=== PATIENT | female | born 1980 | race African-American/Black ===

== ENCOUNTER 2017-03-07 00:40 | Emergency (ER) | payer OTHER ==
[~2017-03-07] VITALS: Ht 170.2 cm; Wt 86.0 kg
[2017-03-07 00:44] VITALS: BP 122/72
== END 2017-03-07 01:34 | disposition left against medical advice (07) ==
LOC: EMS 00:41
DX: N93.9 Abnormal uterine and vaginal bleeding, unspecified (principal); R10.30 Lower abdominal pain, unspecified; J45.909 Unspecified asthma, uncomplicated; F17.210 Nicotine dependence, cigarettes, uncomplicated; Z53.21 Procedure and treatment not carried out due to patient leaving prior to being seen by health care provider

== ENCOUNTER 2018-03-27 09:57 | Emergency (ER) | payer OTHER | END 2018-03-27 10:19 | disposition left against medical advice (07) | LOC: EMS 09:58 | DX: M54.9 Dorsalgia, unspecified (principal); J45.909 Unspecified asthma, uncomplicated; G43.909 Migraine, unspecified, not intractable, without status migrainosus; F17.210 Nicotine dependence, cigarettes, uncomplicated; Z53.21 Procedure and treatment not carried out due to patient leaving prior to being seen by health care provider ==

== ENCOUNTER 2018-04-17 22:53 | Inpatient (IN) | payer SELFPAY ==
[~2018-04-17] VITALS: Ht 172.7 cm; Wt 62.4 kg
[2018-04-17] MEDS ORDERED: ALBU8.5H8 IH (23:00)
[2018-04-18] VITALS (17 sets, daily range): BP systolic 120–145; BP diastolic 64–89
[2018-04-18 02:26] LABS: MEAN CORPUSCULAR HEMOGLOBIN 16.6 pg (26.0-34.0); MEAN CORPUSCULAR HGB CONC 29.3 G/dL (31.0-37.0); MEAN CORPUSCULAR VOLUME 57 fL (80-100); PLATELET COUNT (AUTO) 505 K/uL (150-450); RED CELL DISTRIBUTION WIDTH 21.6 % (11.5-14.5)
[2018-04-18 02:35] LABS: ANION GAP 5 mmol/L (8-16); CALCIUM, TOTAL 8.3 mg/dL (8.8-10.5); CARBON DIOXIDE 27 mmol/L (22-29); CHLORIDE 106 mmol/L (98-107); CREATININE 0.76 mg/dL (0.60-1.30); GLOMERULAR FILTR. RATE CALC > 60 mL/min (>60); GLUCOSE,RANDOM 77 mg/dL (70-110); HEMOGLOBIN 6.5 g/dL (12.0-16.0); POTASSIUM 3.7 mmol/L (3.5-5.1); SODIUM SERUM 138 mmol/L (136-145); UREA NITROGEN, BLOOD 13 mg/dL (7-18)
[2018-04-18 02:50] LABS: ALANINE AMINOTRANSFERASE 18 U/L (12-78); ALBUMIN 3.3 g/dL (3.4-5.0); ALKALINE PHOSPHATASE 44 U/L (46-116); ASPARTATE AMINOTRANSFERASE 17 U/L (15-37); BILIRUBIN,TOTAL 0.1 mg/dL (0.1-1.0); TOTAL PROTEIN, SERUM 6.8 g/dL (6.4-8.2)
[2018-04-18 02:59] LABS: BAND NEUTROPHILS % (MANUAL) 0 % (0-5); EOSINOPHILS % (MANUAL) 2 % (1-6); LYMPHOCYTES % (MANUAL) 33 % (22-44); SEGMENTED NEUTROPHILS % 65 % (40-70)
[2018-04-18] MEDS ORDERED: ONDANSETRON HCL 4 MG/2 ML VIAL IVP PRN ×2 (03:00→05:00)
[2018-04-18] MEDS ORDERED: DiphenhydrAMINE HCL 25 MG CAPSULE PO ONE (03:00)
[2018-04-18] MEDS ORDERED: ACETAMINOPHEN 325 MG TABLET PO PRN ×2 (03:00→05:00)
[2018-04-18] MEDS ORDERED: ACETAMINOPHEN 500 MG TABLET PO ONE (03:00)
[2018-04-18] MEDS ORDERED: 0.9% SODIUM CHLORIDE 10 ML SYRINGE IVP PRN (03:00)
[2018-04-18 03:38] LABS: % IRON SATURATION 1.6 % (22-44)
[2018-04-18] MEDS ORDERED: SODIUM CHLORIDE 0.9% 250 ML IV ONE (04:07)
[2018-04-18] MEDS ORDERED: MAGNESIUM HYDROXIDE SUSPENSION 30 ML UDCUP PO PRN (05:00)
[2018-04-18] MEDS ORDERED: ALBUTEROL SULFATE 2.5 MG/0.5 ML NEB SOLUTION NEB PRN (05:00)
[2018-04-18] MEDS ORDERED: IPRATROPIUM BROMIDE 0.5 MG/2.5 ML NEB SOLUTION NEB PRN (05:00)
[2018-04-18] MEDS ORDERED: OxyCODONE HCL/ACETAMINOPHEN 5-325 MG TABLET PO PRN ×2 (05:00→16:45)
[2018-04-18] MEDS ORDERED: ZOLPIDEM TARTRATE 5 MG TABLET PO PRN (05:00)
[2018-04-18] MEDS ORDERED: BISACODYL 10 MG RECTAL RECTAL SUPPOSITORY PR PRN (05:00)
[2018-04-18] MEDS: FERROUS SULFATE 325 MG EC TABLET PO SCH ×3 (08:08→18:05)
[2018-04-18] MEDS ORDERED: SODIUM CHLORIDE 0.9% 500 ML IV ONE (11:09)
[2018-04-18 16:45] LABS: BASOPHILS % (AUTO) 0.8 % (0.0-2.0); EOSINOPHILS % (AUTO) 1.2 % (1.0-6.0); HEMATOCRIT 30.8 % (36-46); HEMOGLOBIN 9.2 g/dL (12.0-16.0); LYMPHOCYTES # (AUTO) 3.7 K/uL (1.0-4.8); LYMPHOCYTES % (AUTO) 45.5 % (22.0-44.0); MEAN CORPUSCULAR HEMOGLOBIN 18.8 pg (26.0-34.0); MEAN CORPUSCULAR VOLUME 63 fL (80-100); MONOCYTES # (AUTO) 0.4 K/uL (0.1-1.0); NEUTROPHILS # (AUTO) 3.9 K/uL (1.8-7.7); NEUTROPHILS % (AUTO) 47.5 % (40.0-70.0); PLATELET COUNT (AUTO) 522 K/uL (150-450); RED BLOOD CELL COUNT(AUTO) 4.91 MIL/uL (4.00-5.20); RED CELL DISTRIBUTION WIDTH 28.1 % (11.5-14.5)
[2018-04-18] MEDS ORDERED: SUMAtriptan SUCCINATE 6 MG/0.5 ML VIAL SQ ONE (16:45)
[2018-04-18 17:43] LABS: PLATELET MORPHOLOGY COMMENT INCREASED
== END 2018-04-18 18:30 | disposition left against medical advice (07) | DRG 812 ==
LOC: EMS 22:53 → 6N 04-18 03:24
PROVIDERS: ADMIT Internal Medicine; ATTEND Internal Medicine
PROC: 30233N1 Transfusion of Nonautologous Red Blood Cells into Peripheral Vein, Percutaneous Approach (ICD-10-PCS; principal; 2018-04-18)
DX: D50.9 Iron deficiency anemia, unspecified (principal); N92.0 Excessive and frequent menstruation with regular cycle; G43.909 Migraine, unspecified, not intractable, without status migrainosus; Z53.21 Procedure and treatment not carried out due to patient leaving prior to being seen by health care provider; J45.909 Unspecified asthma, uncomplicated; G40.909 Epilepsy, unspecified, not intractable, without status epilepticus; F17.210 Nicotine dependence, cigarettes, uncomplicated; Z71.6 Tobacco abuse counseling; Z98.891 History of uterine scar from previous surgery; Z87.442 Personal history of urinary calculi
CPT/HCPCS: 83540; 83550; 86850; 86900; 86901; 86920; 93005; 99285; 99406; J3030; J7040; J7050; P9016

== ENCOUNTER 2021-02-13 07:01 | Emergency (ER) | payer MEDICAID ==
[~2021-02-13] VITALS: Ht 172.7 cm; Wt 115.9 kg
[~2021-02-13 07:01] MED LIST: ALBU8.5H8 IH; MIRT-89 PO
[2021-02-13] MEDS ORDERED: DEPOP150I IM (07:12)
[2021-02-13] MEDS ORDERED: FAMOTIDINE 10 MG/ML 2 ML VIAL IVP ONE (08:15)
[2021-02-13] MEDS ORDERED: SODIUM CHLORIDE 0.9% 1,000 ML IV ONE (08:15)
[2021-02-13] MEDS ORDERED: KETOROLAC TROMETHAMINE 30 MG/ML VIAL IVP ONE (08:15)
[2021-02-13] MEDS ORDERED: ONDANSETRON HCL 4 MG/2 ML VIAL IVP ONE (08:15)
[2021-02-13] MEDS ORDERED: METOCLOPRAMIDE HCL 5 MG/ML 2 ML VIAL IVP ONE (08:15)
[2021-02-13] MEDS ORDERED: DiphenhydrAMINE HCL 50 MG/ML VIAL IVP ONE (08:15)
[2021-02-13 08:25] LABS: BASOPHILS % (AUTO) 0.6 % (0.0-2.0); EOSINOPHILS % (AUTO) 1.3 % (1.0-6.0); HEMATOCRIT 38.8 % (36-46); HEMOGLOBIN 12.2 g/dL (12.0-16.0); LYMPHOCYTES # (AUTO) 1.2 K/uL (1.0-4.8); LYMPHOCYTES % (AUTO) 15.5 % (22.0-44.0); MEAN CORPUSCULAR HEMOGLOBIN 24.4 pg (26.0-34.0); MEAN CORPUSCULAR HGB CONC 31.5 G/dL (31.0-37.0); MEAN CORPUSCULAR VOLUME 77 fL (80-100); MONOCYTES # (AUTO) 0.6 K/uL (0.1-1.0); MONOCYTES % (AUTO) 7.7 % (2.0-9.0); NEUTROPHILS # (AUTO) 5.7 K/uL (1.8-7.7); NEUTROPHILS % (AUTO) 74.9 % (40.0-70.0); PLATELET COUNT (AUTO) 401 K/uL (150-450); RED CELL DISTRIBUTION WIDTH 15.2 % (11.5-14.5)
[2021-02-13 08:37] LABS: ANION GAP 7 mmol/L (8-16); CALCIUM, TOTAL 8.7 mg/dL (8.8-10.5); CARBON DIOXIDE 26 mmol/L (22-29); CHLORIDE 105 mmol/L (98-107); CREATININE 0.91 mg/dL (0.60-1.30); GLOMERULAR FILTR. RATE CALC > 60 mL/min (>60); GLUCOSE,RANDOM 110 mg/dL (70-110); POTASSIUM 3.8 mmol/L (3.5-5.1); SODIUM SERUM 138 mmol/L (136-145); UREA NITROGEN, BLOOD 12 mg/dL (7-18)
[2021-02-13] MEDS ORDERED: IOHEXOL 350 MG/ML 100 ML VIAL ONE (08:47)
[2021-02-13] MEDS ORDERED: SODIUM CHLORIDE 0.9% 100 ML ONE (08:47)
[2021-02-13 08:51] LABS: ALANINE AMINOTRANSFERASE 21 U/L (12-78); ALBUMIN 3.6 g/dL (3.4-5.0); ALKALINE PHOSPHATASE 79 U/L (46-116); ASPARTATE AMINOTRANSFERASE 12 U/L (15-37); BILIRUBIN,TOTAL 0.2 mg/dL (0.1-1.0); HCG,QUANTITATIVE < 1 mIU/mL (0-6); LIPASE 44 U/L (73-393); TOTAL PROTEIN, SERUM 7.3 g/dL (6.4-8.2)
[2021-02-13 11:22] VITALS: BP 130/70
== END 2021-02-13 11:26 | disposition home or self-care (01) ==
LOC: EMS 07:02
DX: K52.9 Noninfective gastroenteritis and colitis, unspecified (principal); J45.909 Unspecified asthma, uncomplicated; F31.9 Bipolar disorder, unspecified; F20.9 Schizophrenia, unspecified; F17.210 Nicotine dependence, cigarettes, uncomplicated
CPT/HCPCS: 36415; 74177; 80053; 83690; 84702; 85025; 96361; 96374; 96375; 99285; A9575; J1200; J1885; J2405; J2765; J3490; J7050

== ENCOUNTER 2021-04-14 18:28 | Emergency (ER) | payer MEDICAID ==
[~2021-04-14] VITALS: Ht 172.7 cm; Wt 118.2 kg
[~2021-04-14 18:28] MED LIST changes: +DEPOP150I IM; -MIRT-89 PO
[2021-04-14 19:15] LABS: BASOPHILS % (AUTO) 0.7 % (0.0-2.0); EOSINOPHILS % (AUTO) 0.9 % (1.0-6.0); HEMATOCRIT 38.6 % (36-46); HEMOGLOBIN 12.5 g/dL (12.0-16.0); LYMPHOCYTES # (AUTO) 1.4 K/uL (1.0-4.8); LYMPHOCYTES % (AUTO) 13.2 % (22.0-44.0); MEAN CORPUSCULAR HEMOGLOBIN 25.5 pg (26.0-34.0); MEAN CORPUSCULAR HGB CONC 32.3 G/dL (31.0-37.0); MEAN CORPUSCULAR VOLUME 79 fL (80-100); MONOCYTES # (AUTO) 0.6 K/uL (0.1-1.0); MONOCYTES % (AUTO) 5.8 % (2.0-9.0); NEUTROPHILS # (AUTO) 8.6 K/uL (1.8-7.7); NEUTROPHILS % (AUTO) 79.4 % (40.0-70.0); PLATELET COUNT (AUTO) 427 K/uL (150-450); RED BLOOD CELL COUNT(AUTO) 4.89 MIL/uL (4.00-5.20); RED CELL DISTRIBUTION WIDTH 16.7 % (11.5-14.5)
[2021-04-14] MEDS ORDERED: SODIUM CHLORIDE 0.9% 1,000 ML IV ONE (19:15)
[2021-04-14 19:26] LABS: ANION GAP 9 mmol/L (8-16); CALCIUM, TOTAL 9.2 mg/dL (8.8-10.5); CARBON DIOXIDE 26 mmol/L (22-29); CHLORIDE 108 mmol/L (98-107); CREATININE 1.01 mg/dL (0.60-1.30); GLOMERULAR FILTR. RATE CALC > 60 mL/min (>60); GLUCOSE,RANDOM 81 mg/dL (70-110); POTASSIUM 3.7 mmol/L (3.5-5.1); SODIUM SERUM 143 mmol/L (136-145); UREA NITROGEN, BLOOD 13 mg/dL (7-18)
[2021-04-14 19:39] LABS: COVID AG,FIA SOURCE NASOPHARYNGEAL
[2021-04-14 19:39] LABS: ALANINE AMINOTRANSFERASE 30 U/L (12-78); ALBUMIN 3.6 g/dL (3.4-5.0); ALKALINE PHOSPHATASE 84 U/L (46-116); ASPARTATE AMINOTRANSFERASE 15 U/L (15-37); BILIRUBIN,TOTAL 0.2 mg/dL (0.1-1.0); HCG,QUANTITATIVE < 1 mIU/mL (0-6); LIPASE 58 U/L (73-393); TOTAL PROTEIN, SERUM 7.7 g/dL (6.4-8.2)
[2021-04-14 19:46] LABS: APPEARANCE,URINE CLOUDY (CLEAR); GLUCOSE, URINE (UA) NEGATIVE (NEGATIVE); KETONES,URINE TRACE mg/dL (NEGATIVE); LEUKOCYTE ESTERASE ,URINE NEGATIVE (NEGATIVE); NITRATE,URINE NEGATIVE (NEGATIVE); OCCULT BLOOD,URINE LARGE (NEGATIVE); PROTEIN,URINE POS 1+ (NEGATIVE)
[2021-04-14 19:51] LABS: AMPHET/METH SCREEN,URINE NEGATIVE (NEGATIVE); BARBITURATE SCREEN, URINE NEGATIVE (NEGATIVE); BENZODIAZEPINES SCREEN,URINE NEGATIVE (NEGATIVE); CANNABINOID SCREEN,URINE NEGATIVE (NEGATIVE); COCAINE SCREEN,URINE NEGATIVE (NEGATIVE); METHADONE SCREEN, URINE NEGATIVE (NEGATIVE)
[2021-04-14 19:53] LABS: PHENCYCLIDINE SCREEN,URINE NEGATIVE (NEGATIVE)
[2021-04-14 20:01] LABS: OPIATE SCREEN,URINE NEGATIVE (NEGATIVE)
[2021-04-14 20:04] LABS: BILIRUBIN,URINE PRELIM. POSITIVE (NEGATIVE)
[2021-04-14 20:07] LABS: BACTERIA,URINE Rare /HPF (None Seen); CALCIUM OXALATE CRYSTALS,UR Moderate /LPF (None Seen); SQUAMOUS EPITHELIAL CELL,UR Few /LPF (None Seen); WBC,URINE 0-2 /HPF (0-5)
[2021-04-14] MEDS ORDERED: KETOROLAC TROMETHAMINE 30 MG/ML VIAL IVP ONE (20:30)
[2021-04-14] MEDS ORDERED: BISMUTH SUBSALICYLATE 524 MG/30 ML SUSPENSION UDCUP PO ONE (20:30)
[2021-04-14 22:25] VITALS: BP 130/72
== END 2021-04-14 22:44 | disposition home or self-care (01) ==
LOC: EMS 18:31
DX: N20.1 Calculus of ureter (principal); J45.909 Unspecified asthma, uncomplicated; F31.9 Bipolar disorder, unspecified; G43.909 Migraine, unspecified, not intractable, without status migrainosus; F20.9 Schizophrenia, unspecified; F17.210 Nicotine dependence, cigarettes, uncomplicated; Z20.822 Contact with and (suspected) exposure to COVID-19
CPT/HCPCS: 36415; 74176; 80053; 80307; 81001; 83690; 84702; 85025; 87426; 96361; 96374; 99285; J1885; J7030; 99284

== ENCOUNTER 2021-05-24 04:55 | Emergency (ER) | payer MEDICAID ==
[~2021-05-24] VITALS: Ht 172.7 cm; Wt 115.9 kg
[2021-05-24 06:15] LABS: BASOPHILS % (AUTO) 0.5 % (0.0-2.0); EOSINOPHILS % (AUTO) 1.7 % (1.0-6.0); HEMATOCRIT 34.5 % (36-46); LYMPHOCYTES # (AUTO) 2.1 K/uL (1.0-4.8); LYMPHOCYTES % (AUTO) 25.4 % (22.0-44.0); MEAN CORPUSCULAR HEMOGLOBIN 25.6 pg (26.0-34.0); MEAN CORPUSCULAR VOLUME 80 fL (80-100); MONOCYTES # (AUTO) 0.7 K/uL (0.1-1.0); MONOCYTES % (AUTO) 8.4 % (2.0-9.0); NEUTROPHILS # (AUTO) 5.3 K/uL (1.8-7.7); PLATELET COUNT (AUTO) 335 K/uL (150-450); RED BLOOD CELL COUNT(AUTO) 4.32 MIL/uL (4.00-5.20); RED CELL DISTRIBUTION WIDTH 15.8 % (11.5-14.5)
[2021-05-24] MEDS ORDERED: KETOROLAC TROMETHAMINE 30 MG/ML VIAL IVP ONE (06:15)
[2021-05-24] MEDS ORDERED: MAG HYDROX/AL HYDROX/SIMETH 30 ML SUSP UDCUP PO ONE (06:15)
[2021-05-24] MEDS ORDERED: ONDANSETRON HCL 4 MG/2 ML VIAL IVP ONE (06:15)
[2021-05-24] MEDS ORDERED: FAMOTIDINE 10 MG/ML 2 ML VIAL IVP ONE (06:15)
[2021-05-24] MEDS ORDERED: SODIUM CHLORIDE 0.9% 1,000 ML IV ONE (06:15)
[2021-05-24 06:28] LABS: ANION GAP 10 mmol/L (8-16); CALCIUM, TOTAL 8.5 mg/dL (8.8-10.5); CARBON DIOXIDE 25 mmol/L (22-29); CHLORIDE 108 mmol/L (98-107); CREATININE 0.74 mg/dL (0.60-1.30); GLOMERULAR FILTR. RATE CALC > 60 mL/min (>60); GLUCOSE,RANDOM 103 mg/dL (70-110); POTASSIUM 3.6 mmol/L (3.5-5.1); SODIUM SERUM 143 mmol/L (136-145); UREA NITROGEN, BLOOD 12 mg/dL (7-18)
[2021-05-24 06:37] LABS: ALANINE AMINOTRANSFERASE 19 U/L (12-78); ALBUMIN 3.5 g/dL (3.4-5.0); ALKALINE PHOSPHATASE 67 U/L (46-116); ASPARTATE AMINOTRANSFERASE 12 U/L (15-37); BILIRUBIN,TOTAL 0.3 mg/dL (0.1-1.0); HCG,QUANTITATIVE < 1 mIU/mL (0-6); LIPASE 58 U/L (73-393); TOTAL PROTEIN, SERUM 6.8 g/dL (6.4-8.2)
[2021-05-24] MEDS ORDERED: IOHEXOL 350 MG/ML 150 ML VIAL ONE (07:36)
[2021-05-24] MEDS ORDERED: SODIUM CHLORIDE 0.9% 100 ML ONE (07:36)
[2021-05-24 09:44] LABS: APPEARANCE,URINE CLEAR (CLEAR); BILIRUBIN,URINE NEGATIVE (NEGATIVE); GLUCOSE, URINE (UA) NEGATIVE (NEGATIVE); KETONES,URINE NEGATIVE (NEGATIVE); LEUKOCYTE ESTERASE ,URINE NEGATIVE (NEGATIVE); NITRATE,URINE NEGATIVE (NEGATIVE); OCCULT BLOOD,URINE NEGATIVE (NEGATIVE); PH,URINE 5.5 (5.0-8.0); PROTEIN,URINE NEGATIVE (NEGATIVE); UROBILINOGEN,URINE 0.2 mg/dL (<=1.0)
[2021-05-24 10:35] VITALS: BP 127/74
== END 2021-05-24 10:36 | disposition home or self-care (01) ==
LOC: EMS 04:59
DX: R10.32 Left lower quadrant pain (principal); R11.2 Nausea with vomiting, unspecified; R19.7 Diarrhea, unspecified; J45.909 Unspecified asthma, uncomplicated; F31.9 Bipolar disorder, unspecified; F20.9 Schizophrenia, unspecified; G43.909 Migraine, unspecified, not intractable, without status migrainosus; F17.210 Nicotine dependence, cigarettes, uncomplicated; Z79.899 Other long term (current) drug therapy
CPT/HCPCS: 36415; 74177; 76830; 76856; 80053; 81003; 83690; 84702; 85025; 96361; 96374; 96375; 99285; A9575; J1885; J2405; J3490; J7050

== ENCOUNTER 2021-08-07 08:14 | Emergency (ER) | payer MEDICAID ==
[~2021-08-07] VITALS: Ht 172.7 cm; Wt 112.0 kg
[2021-08-07] MEDS ORDERED: IBUPROFEN 800 MG TABLET PO ONE (09:00)
[2021-08-07 10:43] VITALS: BP 115/69
== END 2021-08-07 10:44 | disposition home or self-care (01) ==
LOC: EMS 08:16
DX: S90.111A Contusion of right great toe without damage to nail, initial encounter (principal); W10.8XXA Fall (on) (from) other stairs and steps, initial encounter; Y93.89 Activity, other specified; Y92.89 Other specified places as the place of occurrence of the external cause; Y99.8 Other external cause status
CPT/HCPCS: 99283

== ENCOUNTER 2021-11-25 19:46 | Emergency (ER) | payer MEDICAID ==
[~2021-11-25] VITALS: Ht 172.7 cm; Wt 109.1 kg
[2021-11-25] MEDS ORDERED: DIPHENOXYLATE/ATROP 2.5-0.025 MG TABLET PO ONE (20:15)
[2021-11-25] MEDS ORDERED: ONDANSETRON HCL 4 MG/2 ML VIAL IVP ONE (20:15)
[2021-11-25] MEDS ORDERED: ACETAMINOPHEN 500 MG TABLET PO ONE (20:15)
[2021-11-25] MEDS ORDERED: SODIUM CHLORIDE 0.9% 1,000 ML IV ONE (20:15)
[2021-11-25 21:45] LABS: BASOPHILS % (AUTO) 0.5 % (0.0-2.0); EOSINOPHILS % (AUTO) 0.9 % (1.0-6.0); HEMATOCRIT 34.9 % (36-46); HEMOGLOBIN 11.5 g/dL (12.0-16.0); LYMPHOCYTES % (AUTO) 10.3 % (22.0-44.0); MEAN CORPUSCULAR HEMOGLOBIN 26.1 pg (26.0-34.0); MEAN CORPUSCULAR HGB CONC 32.9 G/dL (31.0-37.0); MEAN CORPUSCULAR VOLUME 79 fL (80-100); MONOCYTES # (AUTO) 0.5 K/uL (0.1-1.0); MONOCYTES % (AUTO) 5.6 % (2.0-9.0); NEUTROPHILS # (AUTO) 7.8 K/uL (1.8-7.7); NEUTROPHILS % (AUTO) 82.7 % (40.0-70.0); PLATELET COUNT (AUTO) 337 K/uL (150-450); RED CELL DISTRIBUTION WIDTH 15.8 % (11.5-14.5)
[2021-11-25 21:54] LABS: ANION GAP 8 mmol/L (8-16); CALCIUM, TOTAL 8.6 mg/dL (8.8-10.5); CARBON DIOXIDE 25 mmol/L (22-29); CHLORIDE 110 mmol/L (98-107); CREATININE 0.85 mg/dL (0.60-1.30); GLOMERULAR FILTR. RATE CALC > 60 mL/min (>60); GLUCOSE,RANDOM 125 mg/dL (70-110); POTASSIUM 3.6 mmol/L (3.5-5.1); SODIUM SERUM 143 mmol/L (136-145); UREA NITROGEN, BLOOD 15 mg/dL (7-18)
[2021-11-25 22:00] LABS: ALANINE AMINOTRANSFERASE 18 U/L (12-78); ALBUMIN 3.3 g/dL (3.4-5.0); ALKALINE PHOSPHATASE 73 U/L (46-116); ASPARTATE AMINOTRANSFERASE 14 U/L (15-37); BILIRUBIN,TOTAL 0.2 mg/dL (0.1-1.0); LIPASE 61 U/L (73-393); TOTAL PROTEIN, SERUM 6.9 g/dL (6.4-8.2)
[2021-11-25] MEDS ORDERED: DIPH-654 PO (23:19)
[2021-11-25] MEDS ORDERED: ACET-66 PO (23:19)
[2021-11-25] MEDS ORDERED: ONDA-104 PO (23:19)
[2021-11-26] MEDS ORDERED: ONDANSETRON HCL 4 MG/2 ML VIAL IVP ONE (00:15)
[2021-11-26 00:43] VITALS: BP 129/65
== END 2021-11-26 00:03 | disposition home or self-care (01) ==
LOC: EMS 19:51
DX: K52.9 Noninfective gastroenteritis and colitis, unspecified (principal); F17.210 Nicotine dependence, cigarettes, uncomplicated; Z79.899 Other long term (current) drug therapy
CPT/HCPCS: 36415; 80053; 83690; 84703; 85025; 96361; 96374; 99285; J2405; J7030

== ENCOUNTER 2022-01-01 14:10 | Emergency (ER) | payer MEDICAID ==
[~2022-01-01] VITALS: Ht 172.7 cm; Wt 118.2 kg
[~2022-01-01 14:10] MED LIST changes: +ACET-66 PO; +DIPH-654 PO; +ONDA-104 PO
[2022-01-01 14:57] LABS: ANION GAP 8 mmol/L (8-16); CALCIUM, TOTAL 9.5 mg/dL (8.8-10.5); CARBON DIOXIDE 22 mmol/L (22-29); CHLORIDE 107 mmol/L (98-107); CREATININE 0.78 mg/dL (0.60-1.30); GLOMERULAR FILTR. RATE CALC > 60 mL/min (>60); GLUCOSE,RANDOM 92 mg/dL (70-110); POTASSIUM 3.9 mmol/L (3.5-5.1); SODIUM SERUM 137 mmol/L (136-145); UREA NITROGEN, BLOOD 17 mg/dL (7-18)
[2022-01-01 15:08] LABS: ALANINE AMINOTRANSFERASE 19 U/L (12-78); ALBUMIN 4.1 g/dL (3.4-5.0); ALKALINE PHOSPHATASE 84 U/L (46-116); ASPARTATE AMINOTRANSFERASE 12 U/L (15-37); BILIRUBIN,TOTAL 0.4 mg/dL (0.1-1.0); HCG,QUANTITATIVE < 1 mIU/mL (0-6); LIPASE 46 U/L (73-393); TOTAL PROTEIN, SERUM 8.8 g/dL (6.4-8.2)
[2022-01-01] MEDS: RINGERS SOLUTION,LACTATED 1,000 ML IV ONE ×2 (15:29→15:51)
[2022-01-01] MEDS: ONDANSETRON HCL 4 MG/2 ML VIAL IVP ONE ×2 (15:29→15:51)
[2022-01-01 16:21] LABS: BAND NEUTROPHILS % (MANUAL) 0 % (0-5)
[2022-01-01 16:23] LABS: HEMOGLOBIN 13.3 g/dL (12.0-16.0); MEAN CORPUSCULAR HEMOGLOBIN 26.1 pg (26.0-34.0); MEAN CORPUSCULAR HGB CONC 32.5 G/dL (31.0-37.0); MEAN CORPUSCULAR VOLUME 80 fL (80-100); PLATELET COUNT (AUTO) 408 K/uL (150-450); RED BLOOD CELL COUNT(AUTO) 5.12 MIL/uL (4.00-5.20); RED CELL DISTRIBUTION WIDTH 15.5 % (11.5-14.5)
[2022-01-01] MEDS ORDERED: ONDANSETRON HCL 4 MG TABLET PO ONE (16:30)
[2022-01-01] MEDS ORDERED: MAG HYDROX/AL HYDROX/SIMETH ES 30 ML SUSPENSION UDCUP PO ONE (16:45)
[2022-01-01] MEDS ORDERED: ACETAMINOPHEN 500 MG TABLET PO ONE (16:45)
[2022-01-01 17:02] LABS: EOSINOPHILS % (MANUAL) 1 % (1-6); LYMPHOCYTES % (MANUAL) 29 % (22-44); MONOCYTES % (MANUAL) 2 % (2-9); SEGMENTED NEUTROPHILS % 68 % (40-70)
[2022-01-01] MEDS ORDERED: HYDROCODONE/ACETAMINOPHEN 5-325 MG TABLET PO ONE (18:45)
[2022-01-01 19:47] VITALS: BP 133/65
== END 2022-01-01 20:01 | disposition home or self-care (01) ==
LOC: EMS 14:13
DX: R55 Syncope and collapse (principal); R11.10 Vomiting, unspecified; R19.7 Diarrhea, unspecified; R10.9 Unspecified abdominal pain; D64.9 Anemia, unspecified; F20.9 Schizophrenia, unspecified; G43.909 Migraine, unspecified, not intractable, without status migrainosus; J45.909 Unspecified asthma, uncomplicated; F31.9 Bipolar disorder, unspecified; Z87.442 Personal history of urinary calculi; Z86.69 Personal history of other diseases of the nervous system and sense organs
CPT/HCPCS: 36415; 80053; 83690; 84702; 85007; 85027; 93005; 99284; J2405; Q0162; J7120

== ENCOUNTER 2022-04-10 16:44 | Emergency (ER) | payer MEDICAID ==
[~2022-04-10] VITALS: Ht 172.7 cm; Wt 106.9 kg
[2022-04-10] MEDS ORDERED: SODIUM CHLORIDE 0.9% 1,000 ML IV ONE (17:30)
[2022-04-10 17:53] LABS: APPEARANCE,URINE CLEAR (CLEAR); BILIRUBIN,URINE NEGATIVE (NEGATIVE); GLUCOSE, URINE (UA) NEGATIVE (NEGATIVE); KETONES,URINE NEGATIVE (NEGATIVE); LEUKOCYTE ESTERASE ,URINE NEGATIVE (NEGATIVE); NITRATE,URINE NEGATIVE (NEGATIVE); OCCULT BLOOD,URINE MODERATE (NEGATIVE); PROTEIN,URINE TRACE mg/dL (NEGATIVE)
[2022-04-10 17:57] LABS: BACTERIA,URINE Rare /HPF (None Seen); SQUAMOUS EPITHELIAL CELL,UR Moderate /LPF (None Seen); WBC,URINE 0-2 /HPF (0-5)
[2022-04-10 18:04] LABS: BASOPHILS % (AUTO) 0.7 % (0.0-2.0); EOSINOPHILS % (AUTO) 1.5 % (1.0-6.0); HEMATOCRIT 36.5 % (36-46); LYMPHOCYTES # (AUTO) 2.3 K/uL (1.0-4.8); LYMPHOCYTES % (AUTO) 27.8 % (22.0-44.0); MEAN CORPUSCULAR HEMOGLOBIN 26.7 pg (26.0-34.0); MEAN CORPUSCULAR HGB CONC 32.8 G/dL (31.0-37.0); MEAN CORPUSCULAR VOLUME 81 fL (80-100); MONOCYTES # (AUTO) 0.7 K/uL (0.1-1.0); MONOCYTES % (AUTO) 7.7 % (2.0-9.0); NEUTROPHILS # (AUTO) 5.2 K/uL (1.8-7.7); NEUTROPHILS % (AUTO) 62.3 % (40.0-70.0); PLATELET COUNT (AUTO) 342 K/uL (150-450); RED CELL DISTRIBUTION WIDTH 16.1 % (11.5-14.5)
[2022-04-10 18:12] LABS: ANION GAP 6 mmol/L (8-16); CALCIUM, TOTAL 9.4 mg/dL (8.8-10.5); CARBON DIOXIDE 26 mmol/L (22-29); CHLORIDE 109 mmol/L (98-107); CREATININE 0.82 mg/dL (0.60-1.30); GLOMERULAR FILTR. RATE CALC > 60 mL/min (>60); GLUCOSE,RANDOM 78 mg/dL (70-110); POTASSIUM 3.6 mmol/L (3.5-5.1); SODIUM SERUM 141 mmol/L (136-145); UREA NITROGEN, BLOOD 15 mg/dL (7-18)
[2022-04-10 18:18] LABS: ALANINE AMINOTRANSFERASE 24 U/L (12-78); ALBUMIN 3.5 g/dL (3.4-5.0); ALKALINE PHOSPHATASE 70 U/L (46-116); ASPARTATE AMINOTRANSFERASE 14 U/L (15-37); BILIRUBIN,TOTAL 0.2 mg/dL (0.1-1.0); TOTAL PROTEIN, SERUM 7.3 g/dL (6.4-8.2)
[2022-04-10 19:58] VITALS: BP 128/74
[2022-04-10] MEDS ORDERED: IBUP-2070 PO (20:02)
== END 2022-04-10 20:10 | disposition home or self-care (01) ==
LOC: EMS 16:44
DX: D25.9 Leiomyoma of uterus, unspecified (principal); F31.9 Bipolar disorder, unspecified; J45.909 Unspecified asthma, uncomplicated; F20.9 Schizophrenia, unspecified; F17.210 Nicotine dependence, cigarettes, uncomplicated
CPT/HCPCS: 76856; 80053; 81001; 84703; 85025; 87491; 87591; 99284

== ENCOUNTER 2022-04-18 15:37 | Emergency (ER) | payer MEDICAID ==
[~2022-04-18] VITALS: Ht 172.7 cm; Wt 106.8 kg
[~2022-04-18 15:37] MED LIST changes: -ACET-66 PO; -ALBU8.5H8 IH; -DEPOP150I IM; -DIPH-654 PO; +IBUP-2070 PO; -ONDA-104 PO
[2022-04-18 17:08] VITALS: BP 150/80
[2022-04-18] MEDS ORDERED: BUPIVACAINE HCL/PF 0.25% 10 ML VIAL SQ ONE (17:15)
[2022-04-18] MEDS ORDERED: HYDROCODONE/ACETAMINOPHEN 5-325 MG TABLET PO ONE (17:15)
[2022-04-18] MEDS ORDERED: POVIDONE-IODINE 10% 120 ML SOLUTION TP ONE (17:15)
[2022-04-18] MEDS ORDERED: CEPH-558 PO (18:04)
[2022-04-18] MEDS ORDERED: IBUP-2070 PO (18:04)
[2022-04-18] MEDS ORDERED: SULF-261 PO (18:04)
== END 2022-04-18 18:28 | disposition home or self-care (01) ==
LOC: EMS 15:39
DX: L02.414 Cutaneous abscess of left upper limb (principal); I10 Essential (primary) hypertension; F31.9 Bipolar disorder, unspecified; J45.909 Unspecified asthma, uncomplicated; F17.210 Nicotine dependence, cigarettes, uncomplicated
CPT/HCPCS: 99283; 10060; J3490

== ENCOUNTER 2022-04-21 21:15 | Emergency (ER) | payer MEDICAID ==
[~2022-04-21] VITALS: Ht 172.7 cm; Wt 106.8 kg
[~2022-04-21 21:15] MED LIST changes: +CEPH-558 PO; +SULF-261 PO
[2022-04-21 21:26] VITALS: BP 118/95
== END 2022-04-21 22:44 | disposition home or self-care (01) ==
LOC: EMS 21:16
DX: Z48.00 Encounter for change or removal of nonsurgical wound dressing (principal); I10 Essential (primary) hypertension; J45.909 Unspecified asthma, uncomplicated; F17.210 Nicotine dependence, cigarettes, uncomplicated; Z79.899 Other long term (current) drug therapy
CPT/HCPCS: 99281; Z7502

== ENCOUNTER 2022-06-29 15:12 | Emergency (ER) | payer MEDICAID ==
[~2022-06-29] VITALS: Ht 170.2 cm; Wt 100.0 kg
[2022-06-29] MEDS ORDERED: AMOX250C4 PO (15:16)
[2022-06-29] MEDS ORDERED: AMOX500C2 PO (16:40)
[2022-06-29] MEDS ORDERED: IBUP-2077 PO (16:40)
[2022-06-29] MEDS ORDERED: DiphenhydrAMINE HCL 50 MG/ML VIAL IVP ONE (16:45)
[2022-06-29] MEDS ORDERED: FAMOTIDINE 10 MG/ML 2 ML VIAL IVP ONE (16:45)
[2022-06-29 17:06] LABS: BASOPHILS % (AUTO) 0.4 % (0.0-2.0); EOSINOPHILS % (AUTO) 0.9 % (1.0-6.0); HEMATOCRIT 35.7 % (36-46); HEMOGLOBIN 11.5 g/dL (12.0-16.0); LYMPHOCYTES % (AUTO) 22.1 % (22.0-44.0); MEAN CORPUSCULAR HEMOGLOBIN 26.9 pg (26.0-34.0); MEAN CORPUSCULAR HGB CONC 32.2 G/dL (31.0-37.0); MEAN CORPUSCULAR VOLUME 84 fL (80-100); MONOCYTES # (AUTO) 0.4 K/uL (0.1-1.0); MONOCYTES % (AUTO) 4.6 % (2.0-9.0); NEUTROPHILS # (AUTO) 6.7 K/uL (1.8-7.7); PLATELET COUNT (AUTO) 337 K/uL (150-450); RED BLOOD CELL COUNT(AUTO) 4.27 MIL/uL (4.00-5.20); RED CELL DISTRIBUTION WIDTH 14.4 % (11.5-14.5)
[2022-06-29 17:16] LABS: ANION GAP 6 mmol/L (8-16); CALCIUM, TOTAL 8.8 mg/dL (8.8-10.5); CARBON DIOXIDE 26 mmol/L (22-29); CHLORIDE 107 mmol/L (98-107); CREATININE 0.71 mg/dL (0.60-1.30); GLUCOSE,RANDOM 95 mg/dL (70-110); POTASSIUM 3.6 mmol/L (3.5-5.1); SODIUM SERUM 139 mmol/L (136-145); UREA NITROGEN, BLOOD 14 mg/dL (7-18)
[2022-06-29 17:17] LABS: GLOMERULAR FILTR. RATE CALC > 60 mL/min (>60)
[2022-06-29 17:29] LABS: ALANINE AMINOTRANSFERASE 17 U/L (12-78); ALBUMIN 3.3 g/dL (3.4-5.0); ALKALINE PHOSPHATASE 60 U/L (46-116); ASPARTATE AMINOTRANSFERASE 16 U/L (15-37); BILIRUBIN,TOTAL 0.3 mg/dL (0.1-1.0); HCG,QUANTITATIVE < 1 mIU/mL (0-6); TOTAL PROTEIN, SERUM 6.6 g/dL (6.4-8.2)
[2022-06-29] MEDS: FAMOTIDINE 20 MG TABLET PO ONE (17:49)
[2022-06-29] MEDS: PredniSONE 20 MG TABLET PO ONE (17:50)
[2022-06-29] MEDS: DiphenhydrAMINE HCL 25 MG CAPSULE PO ONE (17:50)
[2022-06-29] MEDS: EPINEPHrine 1:1,000 [1 MG/ML] VIAL IM ONE (18:41)
[2022-06-29] MEDS: ONDANSETRON HCL 4 MG/2 ML VIAL IVP ONE (19:08)
[2022-06-29] MEDS ORDERED: EPIN0.3P3 IM (22:23)
[2022-06-29] MEDS ORDERED: PRED-554 PO (22:24)
[2022-06-29] MEDS ORDERED: DIPH25CA85 PO (22:25)
[2022-06-30 00:40] VITALS: BP 115/61
== END 2022-06-30 00:47 | disposition home or self-care (01) ==
LOC: EMS 15:12
DX: T88.6XXA Anaphylactic reaction due to adverse effect of correct drug or medicament properly administered, initial encounter (principal); T36.0X5A Adverse effect of penicillins, initial encounter; Z87.19 Personal history of other diseases of the digestive system; Z98.890 Other specified postprocedural states; Y92.89 Other specified places as the place of occurrence of the external cause
CPT/HCPCS: 99285; 96374; 71045; 80053; 84484; 84702; 85025; 86308; 36415; 81025; 93005; 96372; J0171; J2405; J7512

== ENCOUNTER 2022-08-02 15:45 | Emergency (ER) | payer MEDICAID ==
[~2022-08-02] VITALS: Ht 172.7 cm; Wt 108.0 kg
[~2022-08-02 15:45] MED LIST changes: -CEPH-558 PO; +DIPH25CA85 PO; +EPIN0.3P3 IM; -IBUP-2070 PO; +IBUP-2077 PO; +PRED-554 PO; -SULF-261 PO
[2022-08-02 15:50] VITALS: BP 126/74
[2022-08-02] MEDS ORDERED: IBUP-2070 PO (17:38)
[2022-08-02] MEDS ORDERED: DOXY-354 PO (17:38)
[2022-08-02] MEDS ORDERED: IBUPROFEN 600 MG TABLET PO ONE (17:45)
[2022-08-02] MEDS ORDERED: DOXYCYCLINE HYCLATE 100 MG TABLET PO ONE (17:45)
== END 2022-08-02 18:04 | disposition home or self-care (01) ==
LOC: EMS 16:08
DX: S80.862A Insect bite (nonvenomous), left lower leg, initial encounter (principal); F17.210 Nicotine dependence, cigarettes, uncomplicated; Z98.890 Other specified postprocedural states; W57.XXXA Bitten or stung by nonvenomous insect and other nonvenomous arthropods, initial encounter; Y93.89 Activity, other specified; Y92.89 Other specified places as the place of occurrence of the external cause; Y99.8 Other external cause status
CPT/HCPCS: 93005; 99283

== ENCOUNTER 2022-08-10 16:49 | Emergency (ER) | payer MEDICAID ==
[~2022-08-10] VITALS: Ht 172.7 cm; Wt 109.1 kg
[~2022-08-10 16:49] MED LIST changes: +DOXY-354 PO; +IBUP-2070 PO
[2022-08-10 17:11] VITALS: BP 147/122
[2022-08-10] MEDS ORDERED: FAMO20TA8 PO (17:24)
[2022-08-10] MEDS ORDERED: NEOMYCIN/BACITRACIN/POLYMYXIN B OINTMENT PACKET TP ONE (18:00)
[2022-08-10] MEDS ORDERED: DOXY-354 PO (18:13)
[2022-08-10] MEDS ORDERED: BACI28OI29 TP (18:13)
== END 2022-08-10 18:25 | disposition home or self-care (01) ==
LOC: EMS 16:49
DX: S80.862D Insect bite (nonvenomous), left lower leg, subsequent encounter (principal); F17.210 Nicotine dependence, cigarettes, uncomplicated; Z98.890 Other specified postprocedural states; Z88.5 Allergy status to narcotic agent
CPT/HCPCS: 99283

== ENCOUNTER 2022-08-23 15:35 | Emergency (ER) | payer MEDICAID ==
[~2022-08-23] VITALS: Ht 172.7 cm; Wt 104.0 kg
[~2022-08-23 15:35] MED LIST changes: +BACI28OI29 TP; +FAMO20TA8 PO; -IBUP-2077 PO; -PRED-554 PO
[2022-08-23 17:38] VITALS: BP 108/79
[2022-08-23] MEDS ORDERED: DOXYCYCLINE HYCLATE 100 MG TABLET PO ONE (18:15)
[2022-08-23] MEDS ORDERED: DOXY-354 PO (18:33)
== END 2022-08-23 18:47 | disposition home or self-care (01) ==
LOC: EMS 17:41
DX: T63.301A Toxic effect of unspecified spider venom, accidental (unintentional), initial encounter (principal); L03.116 Cellulitis of left lower limb; F17.210 Nicotine dependence, cigarettes, uncomplicated; Z98.890 Other specified postprocedural states; Z88.8 Allergy status to other drugs, medicaments and biological substances; Y92.89 Other specified places as the place of occurrence of the external cause
CPT/HCPCS: 10060; 10160; 99283

== ENCOUNTER 2022-11-24 10:38 | Emergency (ER) | payer MEDICAID, OTHER ==
[~2022-11-24] VITALS: Ht 172.7 cm; Wt 90.9 kg
[~2022-11-24 10:38] MED LIST changes: -BACI28OI29 TP; +BACI28OI9 TP; +IBUP-1492 PO; -IBUP-2070 PO
[2022-11-24 11:19] VITALS: BP 147/88
== END 2022-11-24 13:09 | disposition left against medical advice (07) ==
LOC: EMS 10:48
DX: M54.9 Dorsalgia, unspecified (principal); R05.9 Cough, unspecified; F17.210 Nicotine dependence, cigarettes, uncomplicated; Z98.890 Other specified postprocedural states; Z88.8 Allergy status to other drugs, medicaments and biological substances

== ENCOUNTER 2023-02-02 12:43 | Emergency (ER) | payer OTHER ==
[~2023-02-02] VITALS: Ht 170.2 cm; Wt 102.3 kg
[2023-02-02] MEDS ORDERED: KETOROLAC TROMETHAMINE 30 MG/ML VIAL IVP ONE (13:00)
[2023-02-02] MEDS ORDERED: SODIUM CHLORIDE 0.9% 1,000 ML IV ONE (13:00)
[2023-02-02] MEDS ORDERED: ONDANSETRON HCL 4 MG/2 ML VIAL IVP ONE (13:00)
[2023-02-02 13:38] LABS: APPEARANCE,URINE CLEAR (CLEAR); BILIRUBIN,URINE NEGATIVE (NEGATIVE); GLUCOSE, URINE (UA) NEGATIVE (NEGATIVE); KETONES,URINE NEGATIVE (NEGATIVE); LEUKOCYTE ESTERASE ,URINE NEGATIVE (NEGATIVE); NITRATE,URINE NEGATIVE (NEGATIVE); OCCULT BLOOD,URINE NEGATIVE (NEGATIVE); PROTEIN,URINE NEGATIVE (NEGATIVE); SPECIFIC GRAVITIY, URINE 1.019 (1.003-1.030); UROBILINOGEN,URINE <=1.0 mg/dL (<=1.0)
[2023-02-02 13:47] LABS: ANION GAP 9 mmol/L (8-16); CALCIUM, TOTAL 9.3 mg/dL (8.8-10.5); CARBON DIOXIDE 24 mmol/L (22-29); CHLORIDE 108 mmol/L (98-107); CREATININE 0.47 mg/dL (0.60-1.30); GLOMERULAR FILTR. RATE CALC > 60 mL/min (>60); GLUCOSE,RANDOM 91 mg/dL (70-110); SODIUM SERUM 141 mmol/L (136-145); UREA NITROGEN, BLOOD 15 mg/dL (7-18)
[2023-02-02 13:54] LABS: ALANINE AMINOTRANSFERASE 29 U/L (12-78); ALBUMIN 3.3 g/dL (3.4-5.0); ALKALINE PHOSPHATASE 65 U/L (46-116); ASPARTATE AMINOTRANSFERASE 18 U/L (15-37); LIPASE 67 U/L (73-393); TOTAL PROTEIN, SERUM 7.2 g/dL (6.4-8.2)
[2023-02-02 14:03] LABS: BILIRUBIN,TOTAL 0.1 mg/dL (0.1-1.0)
[2023-02-02 14:17] LABS: BASOPHILS % (AUTO) 1.6 % (0.0-2.0); EOSINOPHILS % (AUTO) 2.3 % (1.0-6.0); HEMATOCRIT 27.8 % (36-46); HEMOGLOBIN 8.8 g/dL (12.0-16.0); LYMPHOCYTES # (AUTO) 2.1 K/uL (1.0-4.8); LYMPHOCYTES % (AUTO) 31.8 % (22.0-44.0); MEAN CORPUSCULAR HEMOGLOBIN 21.9 pg (26.0-34.0); MEAN CORPUSCULAR HGB CONC 31.6 G/dL (31.0-37.0); MEAN CORPUSCULAR VOLUME 69 fL (80-100); MONOCYTES # (AUTO) 0.9 K/uL (0.1-1.0); MONOCYTES % (AUTO) 14.1 % (2.0-9.0); NEUTROPHILS # (AUTO) 3.3 K/uL (1.8-7.7); NEUTROPHILS % (AUTO) 50.2 % (40.0-70.0); PLATELET COUNT (AUTO) 388 K/uL (150-450); RED BLOOD CELL COUNT(AUTO) 4.01 MIL/uL (4.00-5.20); RED CELL DISTRIBUTION WIDTH 17.9 % (11.5-14.5)
[2023-02-02] MEDS ORDERED: HYDROmorphone HCL 2 MG/ML SYRINGE IVP ONE (15:15)
[2023-02-02] MEDS ORDERED: BARIUM SULFATE 0.1% SUSPENSION 450 ML BOTTLE PO ONE (15:15)
[2023-02-02] MEDS ORDERED: HYDR-4072 PO (17:48)
[2023-02-02] MEDS ORDERED: ONDA-104 PO (17:48)
[2023-02-02 18:02] VITALS: BP 139/75
== END 2023-02-02 18:15 | disposition home or self-care (01) ==
LOC: EMS 12:43
DX: R10.30 Lower abdominal pain, unspecified (principal); G43.909 Migraine, unspecified, not intractable, without status migrainosus; D50.9 Iron deficiency anemia, unspecified; F17.210 Nicotine dependence, cigarettes, uncomplicated; Z98.890 Other specified postprocedural states; Z88.8 Allergy status to other drugs, medicaments and biological substances
CPT/HCPCS: 99285; 74176; 96374; 96375; 96361; 80053; 81003; 83690; 84703; 85025; 36415; 93005; J1170; J1885; J2405; Q9967; J7030

== ENCOUNTER 2023-02-14 10:04 | Emergency (ER) | payer OTHER ==
[~2023-02-14] VITALS: Ht 172.7 cm; Wt 104.5 kg
[~2023-02-14 10:04] MED LIST changes: -BACI28OI9 TP; -DIPH25CA85 PO; -DOXY-354 PO; -EPIN0.3P3 IM; -FAMO20TA8 PO; +HYDR-4072 PO; -IBUP-1492 PO; +ONDA-104 PO
[2023-02-14] MEDS ORDERED: LIDOCAINE 5% TRANSDERMAL PATCH TD ONE (13:30)
[2023-02-14] MEDS ORDERED: PERTUSS(ACELL),DIPH,TET VAC/PF 0.5 ML SYRINGE IM. ONE (13:30)
[2023-02-14] MEDS ORDERED: KETOROLAC TROMETHAMINE 30 MG/ML VIAL IM ONE (13:30)
[2023-02-14] MEDS ORDERED: NEOMYCIN/BACITRACIN/POLYMYXIN B OINTMENT PACKET TP ONE (13:30)
[2023-02-14] MEDS ORDERED: HYDR-4069 PO (14:55)
[2023-02-14] MEDS ORDERED: LIDO700A15 TP (14:57)
[2023-02-14] MEDS ORDERED: IBUP-1492 PO (14:58)
[2023-02-14 15:12] VITALS: BP 140/75
== END 2023-02-14 15:21 | disposition home or self-care (01) ==
LOC: EMS 10:05
DX: M54.50 Low back pain, unspecified (principal); F17.210 Nicotine dependence, cigarettes, uncomplicated; Z88.0 Allergy status to penicillin; Z98.890 Other specified postprocedural states
CPT/HCPCS: 99284; 72100; 90715; 90471; 96372; J1885

== ENCOUNTER 2023-02-26 16:15 | Emergency (ER) | payer OTHER ==
[~2023-02-26] VITALS: Ht 172.7 cm; Wt 104.5 kg
[~2023-02-26 16:15] MED LIST changes: +HYDR-4069 PO; -HYDR-4072 PO; +IBUP-1492 PO; +LIDO700A15 TP; -ONDA-104 PO
[2023-02-26 17:44] LABS: BASOPHILS % (AUTO) 0.4 % (0.0-2.0); EOSINOPHILS % (AUTO) 2.2 % (1.0-6.0); HEMATOCRIT 27.8 % (36-46); HEMOGLOBIN 8.6 g/dL (12.0-16.0); LYMPHOCYTES # (AUTO) 1.9 K/uL (1.0-4.8); LYMPHOCYTES % (AUTO) 28.6 % (22.0-44.0); MEAN CORPUSCULAR HEMOGLOBIN 21.2 pg (26.0-34.0); MEAN CORPUSCULAR HGB CONC 30.9 G/dL (31.0-37.0); MEAN CORPUSCULAR VOLUME 69 fL (80-100); MONOCYTES # (AUTO) 0.6 K/uL (0.1-1.0); MONOCYTES % (AUTO) 9.3 % (2.0-9.0); NEUTROPHILS % (AUTO) 59.5 % (40.0-70.0); PLATELET COUNT (AUTO) 374 K/uL (150-450); RED BLOOD CELL COUNT(AUTO) 4.05 MIL/uL (4.00-5.20)
[2023-02-26] MEDS ORDERED: ACETAMINOPHEN 500 MG TABLET PO ONE (17:45)
[2023-02-26 17:52] LABS: ANION GAP 10 mmol/L (8-16); CALCIUM, TOTAL 9.1 mg/dL (8.8-10.5); CARBON DIOXIDE 26 mmol/L (22-29); CHLORIDE 109 mmol/L (98-107); CREATININE 0.59 mg/dL (0.60-1.30); GLOMERULAR FILTR. RATE CALC > 60 mL/min (>60); GLUCOSE,RANDOM 82 mg/dL (70-110); SODIUM SERUM 145 mmol/L (136-145)
[2023-02-26 17:58] LABS: ALANINE AMINOTRANSFERASE 28 U/L (12-78); ALBUMIN 2.9 g/dL (3.4-5.0); ALKALINE PHOSPHATASE 89 U/L (46-116); ASPARTATE AMINOTRANSFERASE 17 U/L (15-37); TOTAL PROTEIN, SERUM 6.6 g/dL (6.4-8.2)
[2023-02-26 17:59] LABS: BILIRUBIN,TOTAL < 0.1 mg/dL (0.1-1.0)
[2023-02-26 18:00] VITALS: BP 132/87
[2023-02-26] MEDS ORDERED: DOXY-354 PO (18:56)
[2023-02-26] MEDS ORDERED: ACET-66 PO (18:57)
[2023-02-27] MEDS ORDERED: CLOT15CR23 TP (18:37)
[2023-02-27] MEDS ORDERED: TERB250T90 PO (18:37)
[2023-02-27] MEDS ORDERED: MELO-106 PO (18:37)
[2023-02-27] MEDS ORDERED: CYCL10TA16 PO (18:37)
[2023-02-27] MEDS ORDERED: PREN1TAB26 PO (18:37)
[2023-02-27] MEDS ORDERED: FERR-72 PO (18:37)
[2023-02-27] MEDS ORDERED: CARI-493 PO ×2 (19:57→20:31)
[2023-02-27] MEDS ORDERED: PERCT PO ×2 (19:57→20:31)
[2023-02-27] MEDS ORDERED: HYDR-4072 PO (20:53)
== END 2023-02-26 19:04 | disposition home or self-care (01) ==
LOC: EMS 16:18
DX: R51.9 Headache, unspecified (principal); K08.89 Other specified disorders of teeth and supporting structures; R10.9 Unspecified abdominal pain; F17.210 Nicotine dependence, cigarettes, uncomplicated; Z88.1 Allergy status to other antibiotic agents
CPT/HCPCS: 70450; 80053; 84703; 85025; 99284

== ENCOUNTER 2023-02-27 16:45 | Emergency (ER) | payer OTHER ==
[~2023-02-27] VITALS: Ht 172.7 cm; Wt 104.5 kg
[~2023-02-27 16:45] MED LIST changes: +ACET-66 PO; +DOXY-354 PO; -HYDR-4069 PO; -IBUP-1492 PO; -LIDO700A15 TP
[2023-02-27] MEDS ORDERED: TERB250T90 PO (18:37)
[2023-02-27] MEDS ORDERED: FERR-72 PO (18:37)
[2023-02-27] MEDS ORDERED: PREN1TAB26 PO (18:37)
[2023-02-27] MEDS ORDERED: CYCL10TA16 PO (18:37)
[2023-02-27] MEDS ORDERED: CLOT15CR23 TP (18:37)
[2023-02-27] MEDS ORDERED: MELO-106 PO (18:37)
[2023-02-27] MEDS ORDERED: OxyCODONE HCL/ACETAMINOPHEN 5-325 MG TABLET PO ONE (18:45)
[2023-02-27] MEDS ORDERED: PERCT PO ×2 (19:57→20:31)
[2023-02-27] MEDS ORDERED: CARI-493 PO ×2 (19:57→20:31)
[2023-02-27 20:11] VITALS: BP 135/71
[2023-02-27] MEDS ORDERED: HYDR-4072 PO (20:53)
== END 2023-02-27 20:59 | disposition home or self-care (01) ==
LOC: EMS 16:46
DX: S16.1XXA Strain of muscle, fascia and tendon at neck level, initial encounter (principal); R51.9 Headache, unspecified; F17.210 Nicotine dependence, cigarettes, uncomplicated; Z98.890 Other specified postprocedural states; Z88.8 Allergy status to other drugs, medicaments and biological substances; X58.XXXA Exposure to other specified factors, initial encounter; Y93.89 Activity, other specified; Y92.89 Other specified places as the place of occurrence of the external cause; Y99.8 Other external cause status
CPT/HCPCS: 99283

== ENCOUNTER 2023-06-11 11:03 | Emergency (ER) | payer OTHER ==
[~2023-06-11] VITALS: Ht 172.7 cm; Wt 97.3 kg
[~2023-06-11 11:03] MED LIST changes: +CARI-493 PO; +CLOT15CR23 TP; +CYCL10TA16 PO; +FERR-72 PO; +HYDR-4072 PO; +MELO-106 PO; +PREN1TAB26 PO; +TERB250T90 PO
[2023-06-11] MEDS ORDERED: METH-811 PO (11:12)
[2023-06-11] MEDS ORDERED: FAMO20TA8 PO (11:12)
[2023-06-11] MEDS ORDERED: ATEN-73 PO (11:12)
[2023-06-11] MEDS ORDERED: METH-386 PO (11:12)
[2023-06-11] MEDS ORDERED: ONDANSETRON HCL 4 MG/2 ML VIAL IVP ONE (11:15)
[2023-06-11] MEDS ORDERED: SODIUM CHLORIDE 0.9% 1,000 ML IV ONE (11:15)
[2023-06-11] MEDS ORDERED: MORPHINE SULFATE 4 MG/ML SYRINGE IVP ONE (12:00)
[2023-06-11 12:10] LABS: EOSINOPHILS % (AUTO) 1.4 % (1.0-6.0); HEMATOCRIT 30.3 % (36-46); HEMOGLOBIN 9.1 g/dL (12.0-16.0); LYMPHOCYTES # (AUTO) 2.1 K/uL (1.0-4.8); LYMPHOCYTES % (AUTO) 28.1 % (22.0-44.0); MEAN CORPUSCULAR HEMOGLOBIN 20.1 pg (26.0-34.0); MEAN CORPUSCULAR HGB CONC 30.1 G/dL (31.0-37.0); MEAN CORPUSCULAR VOLUME 67 fL (80-100); MONOCYTES # (AUTO) 0.8 K/uL (0.1-1.0); MONOCYTES % (AUTO) 10.6 % (2.0-9.0); NEUTROPHILS # (AUTO) 4.4 K/uL (1.8-7.7); NEUTROPHILS % (AUTO) 58.9 % (40.0-70.0); PLATELET COUNT (AUTO) 333 K/uL (150-450); RED BLOOD CELL COUNT(AUTO) 4.53 MIL/uL (4.00-5.20); RED CELL DISTRIBUTION WIDTH 19.9 % (11.5-14.5); WHITE BLOOD COUNT (AUTO) 7.5 K/uL (4.5-11.0)
[2023-06-11 12:18] LABS: CALCIUM, TOTAL 8.7 mg/dL (8.8-10.5); CARBON DIOXIDE 24 mmol/L (22-29); CHLORIDE 107 mmol/L (98-107); CREATININE 0.44 mg/dL (0.60-1.30); GLOMERULAR FILTR. RATE CALC > 60 mL/min (>60); GLUCOSE,RANDOM 110 mg/dL (70-110); POTASSIUM 3.8 mmol/L (3.5-5.1); UREA NITROGEN, BLOOD 17 mg/dL (7-18)
[2023-06-11 12:36] LABS: ANION GAP 8 mmol/L (8-16); SODIUM SERUM 139 mmol/L (136-145)
[2023-06-11 12:39] LABS: ALANINE AMINOTRANSFERASE 33 U/L (12-78); ALBUMIN 2.8 g/dL (3.4-5.0); ALKALINE PHOSPHATASE 93 U/L (46-116); ASPARTATE AMINOTRANSFERASE 21 U/L (15-37); BILIRUBIN,TOTAL 0.1 mg/dL (0.1-1.0); HCG,QUANTITATIVE < 1 mIU/mL (0-6); LIPASE 28 U/L (16-77); TOTAL PROTEIN, SERUM 6.1 g/dL (6.4-8.2)
[2023-06-11] MEDS ORDERED: KETOROLAC TROMETHAMINE 30 MG/ML VIAL IVP ONE (13:15)
[2023-06-11 14:01] LABS: APPEARANCE,URINE CLEAR (CLEAR); BILIRUBIN,URINE NEGATIVE (NEGATIVE); COLOR,URINE LIGHT YELLOW (YELLOW); GLUCOSE, URINE (UA) NEGATIVE (NEGATIVE); KETONES,URINE NEGATIVE (NEGATIVE); LEUKOCYTE ESTERASE ,URINE NEGATIVE (NEGATIVE); NITRATE,URINE NEGATIVE (NEGATIVE); OCCULT BLOOD,URINE NEGATIVE (NEGATIVE); PH,URINE 5.5 (5.0-8.0); PROTEIN,URINE NEGATIVE (NEGATIVE); SPECIFIC GRAVITIY, URINE 1.027 (1.003-1.030); UROBILINOGEN,URINE <=1.0 mg/dL (<=1.0)
[2023-06-11 14:23] VITALS: BP 150/60; PULSE 96; RESP 18; TEMP 98.7
[2023-06-11] MEDS ORDERED: ONDA-104 PO (14:24)
== END 2023-06-11 14:35 | disposition home or self-care (01) ==
LOC: EMS 11:05
DX: R10.11 Right upper quadrant pain (principal); R10.2 Pelvic and perineal pain; R11.2 Nausea with vomiting, unspecified; F17.210 Nicotine dependence, cigarettes, uncomplicated; G89.29 Other chronic pain; M54.50 Low back pain, unspecified; Z98.890 Other specified postprocedural states
CPT/HCPCS: 99285; 74176; 96374; 96361; 96375; 80053; 81003; 83690; 84702; 85025; 36415; J1885; J2405; J7030; J2270

== ENCOUNTER 2023-08-03 16:33 | Emergency (ER) | payer OTHER ==
[~2023-08-03] VITALS: Ht 170.2 cm; Wt 100.9 kg
[~2023-08-03 16:33] MED LIST changes: +ATEN-73 PO; -CARI-493 PO; -CLOT15CR23 TP; -CYCL10TA16 PO; -DOXY-354 PO; +FAMO20TA8 PO; -HYDR-4072 PO; +METH-386 PO; +METH-811 PO; +ONDA-104 PO; -TERB250T90 PO
[2023-08-03 16:38] VITALS: BP 125/50; PULSE 98; RESP 16; TEMP 98.6
[2023-08-03] MEDS ORDERED: ACETAMINOPHEN 500 MG TABLET PO ONE (17:45)
[2023-08-03] MEDS ORDERED: LIDOCAINE 5% TRANSDERMAL PATCH TD ONE (17:45)
[2023-08-03 18:37] LABS: APPEARANCE,URINE CLEAR (CLEAR); BILIRUBIN,URINE NEGATIVE (NEGATIVE); COLOR,URINE YELLOW (YELLOW); GLUCOSE, URINE (UA) NEGATIVE (NEGATIVE); KETONES,URINE TRACE mg/dL (NEGATIVE); LEUKOCYTE ESTERASE ,URINE NEGATIVE (NEGATIVE); NITRATE,URINE NEGATIVE (NEGATIVE); OCCULT BLOOD,URINE NEGATIVE (NEGATIVE); PH,URINE 6.5 (5.0-8.0); PH,URINE DRUG SCREEN 6.5 (5.0-8.0); SPECIFIC GRAVITIY, URINE 1.032 (1.003-1.030)
[2023-08-03] MEDS ORDERED: IOHEXOL 300 MG/ML 100 ML VIAL ONE (18:39)
[2023-08-03] MEDS ORDERED: SODIUM CHLORIDE 0.9% 0 ML ONE (18:39)
[2023-08-03 18:42] LABS: AMPHET/METH SCREEN,URINE NEGATIVE (NEGATIVE); BARBITURATE SCREEN, URINE NEGATIVE (NEGATIVE); BENZODIAZEPINES SCREEN,URINE NEGATIVE (NEGATIVE); CANNABINOID SCREEN,URINE NEGATIVE (NEGATIVE); COCAINE SCREEN,URINE NEGATIVE (NEGATIVE); METHADONE SCREEN, URINE NEGATIVE (NEGATIVE); OPIATE SCREEN,URINE NEGATIVE (NEGATIVE); PHENCYCLIDINE SCREEN,URINE NEGATIVE (NEGATIVE)
[2023-08-03 18:43] LABS: PROTEIN,URINE NEGATIVE (NEGATIVE)
[2023-08-03 18:44] LABS: ALCOHOL, URINE DRUG SCREEN NEGATIVE (NEGATIVE)
== END 2023-08-03 19:00 | disposition left against medical advice (07) ==
LOC: EMS 16:34
DX: R10.33 Periumbilical pain (principal); F17.210 Nicotine dependence, cigarettes, uncomplicated; E05.90 Thyrotoxicosis, unspecified without thyrotoxic crisis or storm; Z98.890 Other specified postprocedural states
CPT/HCPCS: 80307; 81003; 99283; J7050; Q9967

== ENCOUNTER 2023-08-17 10:46 | Emergency (ER) | payer OTHER ==
[~2023-08-17] VITALS: Ht 170.2 cm; Wt 103.6 kg
[~2023-08-17 10:46] MED LIST changes: -ACET-66 PO; -ATEN-73 PO; -FAMO20TA8 PO; -MELO-106 PO; -METH-811 PO; -ONDA-104 PO; -PREN1TAB26 PO
[2023-08-17 10:49] VITALS: TEMP 98.1
[2023-08-17 11:20] LABS: COVID AG,FIA SOURCE NASAL SWAB
[2023-08-17 11:44] LABS: SARS-COV2 (COVID) ANTIGEN,FIA Negative (Negative)
[2023-08-17 11:45] LABS: INFLUENZA TYPE A NEGATIVE FOR TYPE A (NEGATIVE); INFLUENZA TYPE B NEGATIVE FOR TYPE B (NEGATIVE)
[2023-08-17 13:51] VITALS: BP 132/72; PULSE 72; RESP 20
== END 2023-08-17 14:09 | disposition home or self-care (01) ==
LOC: EMS 10:47
DX: J06.9 Acute upper respiratory infection, unspecified (principal); F17.210 Nicotine dependence, cigarettes, uncomplicated; E05.90 Thyrotoxicosis, unspecified without thyrotoxic crisis or storm; Z20.822 Contact with and (suspected) exposure to COVID-19; Z98.890 Other specified postprocedural states
CPT/HCPCS: 71045; 87804; 99284

== ENCOUNTER 2023-09-14 14:56 | Inpatient (IN) | payer OTHER ==
[~2023-09-14] VITALS: Ht 170.2 cm; Wt 90.5 kg
[2023-09-14] MEDS ORDERED: ONDANSETRON HCL 4 MG/2 ML VIAL IVP ONE ×3 (16:30→22:00)
[2023-09-14] MEDS ORDERED: MORPHINE SULFATE 4 MG/ML SYRINGE IVP ONE (16:30)
[2023-09-14] MEDS ORDERED: MethylPREDNISolone SOD SUCC 125 MG/2 ML VIAL IVP ONE (16:30)
[2023-09-14] MEDS ORDERED: KETOROLAC TROMETHAMINE 30 MG/ML VIAL IVP ONE (16:30)
[2023-09-14] MEDS ORDERED: IPRATROPIUM BROMIDE 0.5 MG/2.5 ML NEB SOLUTION NEB ONE ×3 (16:30→21:45)
[2023-09-14] MEDS ORDERED: ALBUTEROL SULFATE HFA 90 MCG/PUFF 8 GM INHALER IH ONE (16:30)
[2023-09-14 16:57] LABS: BASOPHILS % (AUTO) 0.7 % (0.0-2.0); EOSINOPHILS % (AUTO) 3.8 % (1.0-6.0); HEMATOCRIT 31.2 % (36-46); HEMOGLOBIN 9.9 g/dL (12.0-16.0); LYMPHOCYTES # (AUTO) 2.1 K/uL (1.0-4.8); LYMPHOCYTES % (AUTO) 43.8 % (22.0-44.0); MEAN CORPUSCULAR HEMOGLOBIN 21.8 pg (26.0-34.0); MEAN CORPUSCULAR HGB CONC 31.6 G/dL (31.0-37.0); MEAN CORPUSCULAR VOLUME 69 fL (80-100); MONOCYTES # (AUTO) 0.6 K/uL (0.1-1.0); MONOCYTES % (AUTO) 11.9 % (2.0-9.0); NEUTROPHILS # (AUTO) 1.9 K/uL (1.8-7.7); NEUTROPHILS % (AUTO) 39.8 % (40.0-70.0); PLATELET COUNT (AUTO) 377 K/uL (150-450); RED BLOOD CELL COUNT(AUTO) 4.53 MIL/uL (4.00-5.20); WHITE BLOOD COUNT (AUTO) 4.7 K/uL (4.5-11.0)
[2023-09-14 17:11] LABS: ANION GAP 6 mmol/L (8-16); CALCIUM, TOTAL 8.6 mg/dL (8.8-10.5); CARBON DIOXIDE 28 mmol/L (22-29); CHLORIDE 106 mmol/L (98-107); CREATININE 0.67 mg/dL (0.60-1.30); GLOMERULAR FILTR. RATE CALC > 60 mL/min (>60); GLUCOSE,RANDOM 106 mg/dL (70-110); POTASSIUM 3.9 mmol/L (3.5-5.1); SODIUM SERUM 140 mmol/L (136-145); UREA NITROGEN, BLOOD 12 mg/dL (7-18)
[2023-09-14 17:13] VITALS: PULSE 82; RESP 16; O2SAT 99
[2023-09-14] MEDS ORDERED: HYDROCODONE/ACETAMINOPHEN 5-325 MG TABLET PO ONE (17:15)
[2023-09-14 17:16] LABS: ALANINE AMINOTRANSFERASE 25 U/L (12-78); ALBUMIN 3.5 g/dL (3.4-5.0); ALKALINE PHOSPHATASE 105 U/L (46-116); ASPARTATE AMINOTRANSFERASE 22 U/L (15-37); BILIRUBIN,TOTAL 0.1 mg/dL (0.1-1.0); TOTAL PROTEIN, SERUM 7.4 g/dL (6.4-8.2)
[2023-09-14 17:17] LABS: TROPONIN I-HIGH SENSITIVITY 5 ng/L (<51)
[2023-09-14 17:25] VITALS: PULSE 71; PULSE 82; RESP 16; RESP 18; O2SAT 100; O2SAT 99
[2023-09-14 18:04] LABS: RBC MORPHOLOGY COMMENT ABNORMAL RBC MORPH
[2023-09-14] MEDS ORDERED: AZITHROMYCIN 500 MG/NS 250 ML IV ONE (18:45)
[2023-09-14] MEDS ORDERED: ALBUTEROL SULFATE 2.5 MG/0.5 ML 5 ML NEB SOLUTION NEB ONE (18:45)
[2023-09-14] MEDS ORDERED: 0.9% SODIUM CHLORIDE 15 ML NEB SOLUTION NEB ONE (19:03)
[2023-09-14 19:20] VITALS: PULSE 77; RESP 24; O2SAT 97
[2023-09-14] MEDS ORDERED: ENALAPRILAT DIHYDRATE 2.5 MG/2 ML VIAL IVP ONE (19:45)
[2023-09-14] MEDS ORDERED: NITROGLYCERIN 2% (1 GM=INCH) OINTMENT PACKET TP ONE (19:45)
[2023-09-14] MEDS ORDERED: MAGNESIUM HYDROXIDE SUSPENSION 30 ML UDCUP PO PRN (19:45)
[2023-09-14] MEDS ORDERED: ACETAMINOPHEN 325 MG TABLET PO PRN (19:45)
[2023-09-14] MEDS ORDERED: FUROSEMIDE 40 MG/4 ML VIAL IVP ONE (19:45)
[2023-09-14] MEDS ORDERED: ONDANSETRON HCL 4 MG/2 ML VIAL IVP PRN (19:45)
[2023-09-14 19:56] LABS: APPEARANCE,URINE HAZY (CLEAR); BILIRUBIN,URINE NEGATIVE (NEGATIVE); COLOR,URINE YELLOW (YELLOW); GLUCOSE, URINE (UA) NEGATIVE (NEGATIVE); KETONES,URINE NEGATIVE (NEGATIVE); LEUKOCYTE ESTERASE ,URINE NEGATIVE (NEGATIVE); NITRATE,URINE NEGATIVE (NEGATIVE); OCCULT BLOOD,URINE LARGE (NEGATIVE); PH,URINE 6.5 (5.0-8.0); PROTEIN,URINE 30-70 mg/dL (NEGATIVE); SPECIFIC GRAVITIY, URINE 1.028 (1.003-1.030)
[2023-09-14 20:20] VITALS: PULSE 95; RESP 20; O2SAT 99
[2023-09-14] MEDS ORDERED: IOHEXOL 350 MG/ML 100 ML VIAL ONE (20:33)
[2023-09-14] MEDS ORDERED: SODIUM CHLORIDE 0.9% 100 ML ONE (20:34)
[2023-09-14 21:01] LABS: BACTERIA,URINE None Seen /HPF (None Seen); RBC,URINE >100 /HPF (0-2); SQUAMOUS EPITHELIAL CELL,UR Rare /LPF (None Seen); WBC,URINE None Seen /HPF (0-5)
[2023-09-14] MEDS ORDERED: ALBUTEROL SULFATE 2.5 MG/0.5 ML NEB SOLUTION NEB ONE (21:45)
[2023-09-14] MEDS ORDERED: LORazepam 2 MG/ML VIAL IVP ONE (21:45)
[2023-09-14 21:54] LABS: INFLUENZA A-RTPCR,COMBO POSITIVE FOR FLU A (NEGATIVE); INFLUENZA B-RTPCR,COMBO NEGATIVE FOR FLU B (NEGATIVE); RESPIRATORY SYNCYTIAL VRS-PCR NEGATIVE (NEGATIVE); SARS COVID19 RTPCR, COMBO NEGATIVE (NEGATIVE)
[2023-09-14] MEDS: MONTELUKAST SODIUM 10 MG TABLET PO SCH (22:14)
[2023-09-14] MEDS: FAMOTIDINE 20 MG TABLET PO SCH (22:14)
[2023-09-14 23:30] VITALS: BP 135/70; PULSE 100; RESP 20; TEMP 98
[2023-09-15] MEDS: MethylPREDNISolone SOD SUCC 125 MG/2 ML VIAL IVP SCH ×3 (00:05→16:08)
[2023-09-15] MEDS ORDERED: METH-386 PO (00:44)
[2023-09-15] MEDS ORDERED: PNEUMOCOCCAL VACCINE POLYVALENT 0.5 ML SYRINGE [PPSV23] IM. ONE (01:15)
[2023-09-15] MEDS ORDERED: INFLUENZA VIRUS VACCINE QVS 2023-24 (6MO+)/PF 60 MCG/0.5 ML SYRINGE IM. ONE (01:15)
[2023-09-15 06:04] VITALS: BP 120/66; PULSE 81; RESP 18; TEMP 97.9
[2023-09-15] MEDS: METHIMAZOLE 10 MG TABLET PO SCH ×2 (09:00→09:23)
[2023-09-15 09:06] VITALS: BP 111/57; PULSE 65; RESP 18; TEMP 97.9
[2023-09-15] MEDS: FAMOTIDINE 20 MG TABLET PO SCH ×2 (09:23→20:38)
[2023-09-15] MEDS: OSELTAMIVIR PHOSPHATE 75 MG CAPSULE PO SCH ×2 (09:23→20:39)
[2023-09-15] MEDS: ALBUTEROL SULFATE 2.5 MG/0.5 ML NEB SOLUTION NEB PRN (13:53)
[2023-09-15 13:54] VITALS: PULSE 101; RESP 20; RESP 24; O2SAT 100
[2023-09-15 14:10] VITALS: PULSE 68; RESP 20; O2SAT 100
[2023-09-15] MEDS: OxyCODONE HCL/ACETAMINOPHEN 5-325 MG TABLET PO PRN (16:07)
[2023-09-15] MEDS: BENZONATATE 100 MG CAPSULE PO PRN (16:20)
[2023-09-15 17:37] VITALS: BP 106/67; PULSE 93; RESP 18; TEMP 97.9
[2023-09-15 19:30] VITALS: BP 119/68; PULSE 63; RESP 18; TEMP 98.9
[2023-09-15] MEDS: MONTELUKAST SODIUM 10 MG TABLET PO SCH (20:38)
[2023-09-16] MEDS: MethylPREDNISolone SOD SUCC 125 MG/2 ML VIAL IVP SCH ×3 (00:45→17:14)
[2023-09-16 03:44] VITALS: BP 131/91; PULSE 91; RESP 18; TEMP 97.9
[2023-09-16 08:21] VITALS: BP 127/65; PULSE 60; RESP 18; TEMP 97.5
[2023-09-16] MEDS: METHIMAZOLE 10 MG TABLET PO SCH (09:00)
[2023-09-16] MEDS: OSELTAMIVIR PHOSPHATE 75 MG CAPSULE PO SCH ×2 (09:06→20:41)
[2023-09-16] MEDS: FAMOTIDINE 20 MG TABLET PO SCH ×2 (09:06→20:41)
[2023-09-16] MEDS ORDERED: SODIUM CHLORIDE 0.9% 250 ML IV ONE (10:56)
[2023-09-16] MEDS: GuaiFENesin/CODEINE [SUGAR FREE] 200-20MG/10 ML SYRUP UDCUP PO PRN ×2 (11:04→17:24)
[2023-09-16] MEDS: AZITHROMYCIN 500 MG/NS 250 ML IV SCH (12:06)
[2023-09-16] MEDS: NICOTINE 21 MG/24 HOUR PATCH TD SCH (15:44)
[2023-09-16 15:51] VITALS: BP 133/69; PULSE 64; RESP 18; TEMP 98.1
[2023-09-16 20:29] VITALS: BP 111/55; PULSE 67; RESP 18; TEMP 98.3
[2023-09-16] MEDS: MONTELUKAST SODIUM 10 MG TABLET PO SCH (20:41)
[2023-09-16] MEDS: BENZONATATE 100 MG CAPSULE PO PRN (20:54)
[2023-09-16] MEDS ORDERED: RINGERS SOLUTION,LACTATED 1,000 ML IV SCH (21:45)
[2023-09-16] MEDS ORDERED: METOCLOPRAMIDE HCL 5 MG/ML 2 ML VIAL IVP ONE (21:45)
[2023-09-16] MEDS ORDERED: 0.9% SODIUM CHLORIDE 5 ML NEB SOLUTION NEB ONE (22:01)
[2023-09-16 23:59] VITALS: PULSE 85; RESP 18; O2SAT 94
[2023-09-17] VITALS (9 sets, daily range): BP systolic 122–156; BP diastolic 66–91; PULSE 45–90; RESP 16–20; TEMP 97.4–98.4; O2SAT 94–99
[2023-09-17] MEDS: ALBUTEROL SULFATE 2.5 MG/0.5 ML NEB SOLUTION NEB PRN ×3 (00:09→20:29)
[2023-09-17] MEDS: MethylPREDNISolone SOD SUCC 125 MG/2 ML VIAL IVP SCH (00:36)
[2023-09-17] MEDS: OxyCODONE HCL/ACETAMINOPHEN 5-325 MG TABLET PO PRN (02:25)
[2023-09-17] MEDS: GuaiFENesin/CODEINE [SUGAR FREE] 200-20MG/10 ML SYRUP UDCUP PO PRN ×2 (08:00→17:15)
[2023-09-17 08:41] LABS: BASOPHILS % (AUTO) 0.2 % (0.0-2.0); EOSINOPHILS % (AUTO) 0 % (1.0-6.0); HEMATOCRIT 31.5 % (36-46); LYMPHOCYTES # (AUTO) 1.8 K/uL (1.0-4.8); LYMPHOCYTES % (AUTO) 14.7 % (22.0-44.0); MEAN CORPUSCULAR HEMOGLOBIN 21.9 pg (26.0-34.0); MEAN CORPUSCULAR HGB CONC 31.8 G/dL (31.0-37.0); MEAN CORPUSCULAR VOLUME 69 fL (80-100); MONOCYTES # (AUTO) 0.4 K/uL (0.1-1.0); MONOCYTES % (AUTO) 3.4 % (2.0-9.0); NEUTROPHILS % (AUTO) 81.7 % (40.0-70.0); PLATELET COUNT (AUTO) 419 K/uL (150-450); RED BLOOD CELL COUNT(AUTO) 4.56 MIL/uL (4.00-5.20); RED CELL DISTRIBUTION WIDTH 18.7 % (11.5-14.5); WHITE BLOOD COUNT (AUTO) 12.2 K/uL (4.5-11.0)
[2023-09-17] MEDS ORDERED: MAGNESIUM HYDROXIDE SUSPENSION 30 ML UDCUP PO PRN (08:45)
[2023-09-17 08:55] LABS: ALANINE AMINOTRANSFERASE 58 U/L (12-78); ALBUMIN 3.2 g/dL (3.4-5.0); ALKALINE PHOSPHATASE 101 U/L (46-116); ANION GAP 9 mmol/L (8-16); ASPARTATE AMINOTRANSFERASE 32 U/L (15-37); BILIRUBIN,TOTAL 0.2 mg/dL (0.1-1.0); CALCIUM, TOTAL 8.8 mg/dL (8.8-10.5); CARBON DIOXIDE 27 mmol/L (22-29); CHLORIDE 106 mmol/L (98-107); CREATININE 0.75 mg/dL (0.60-1.30); GLOMERULAR FILTR. RATE CALC > 60 mL/min (>60); GLUCOSE,RANDOM 144 mg/dL (70-110); POTASSIUM 4.2 mmol/L (3.5-5.1); SODIUM SERUM 142 mmol/L (136-145); TOTAL PROTEIN, SERUM 7.2 g/dL (6.4-8.2); UREA NITROGEN, BLOOD 16 mg/dL (7-18)
[2023-09-17] MEDS: METHIMAZOLE 10 MG TABLET PO SCH (09:00)
[2023-09-17 10:04] LABS: RBC MORPHOLOGY COMMENT ABNORMAL RBC MORPH
[2023-09-17] MEDS: OSELTAMIVIR PHOSPHATE 75 MG CAPSULE PO SCH ×2 (10:23→21:39)
[2023-09-17] MEDS: PANTOPRAZOLE SODIUM 40 MG/VIAL IVP SCH (10:23)
[2023-09-17] MEDS: NICOTINE 21 MG/24 HOUR PATCH TD SCH (10:23)
[2023-09-17] MEDS: DOCUSATE SODIUM 100 MG CAPSULE PO SCH (10:23)
[2023-09-17] MEDS: AZITHROMYCIN 500 MG/NS 250 ML IV SCH (10:25)
[2023-09-17] MEDS: AmLODIPine BESYLATE 5 MG TABLET PO SCH (10:30)
[2023-09-17] MEDS: BENZONATATE 100 MG CAPSULE PO PRN (21:39)
[2023-09-17] MEDS: MONTELUKAST SODIUM 10 MG TABLET PO SCH (21:39)
[2023-09-18 04:00] VITALS: BP 100/51; PULSE 63; RESP 20; TEMP 97.6
[2023-09-18 08:50] VITALS: BP 104/68; PULSE 80; RESP 18; TEMP 97.8
[2023-09-18] MEDS: METHIMAZOLE 10 MG TABLET PO SCH (09:00)
[2023-09-18] MEDS: AmLODIPine BESYLATE 5 MG TABLET PO SCH (09:00)
[2023-09-18] MEDS: NICOTINE 21 MG/24 HOUR PATCH TD SCH (09:29)
[2023-09-18] MEDS: PANTOPRAZOLE SODIUM 40 MG/VIAL IVP SCH (09:30)
[2023-09-18] MEDS: AZITHROMYCIN 500 MG/NS 250 ML IV SCH (09:30)
[2023-09-18] MEDS: OSELTAMIVIR PHOSPHATE 75 MG CAPSULE PO SCH (09:30)
[2023-09-18] MEDS: DOCUSATE SODIUM 100 MG CAPSULE PO SCH (09:30)
[2023-09-18 09:36] VITALS: PULSE 88; RESP 16; O2SAT 98
[2023-09-18] MEDS: ALBUTEROL SULFATE 2.5 MG/0.5 ML NEB SOLUTION NEB PRN (09:36)
[2023-09-18 09:37] VITALS: PULSE 86; RESP 16; O2SAT 98
[2023-09-18] MEDS ORDERED: AZIT500T4 PO (10:15)
[2023-09-18] MEDS ORDERED: METH-387 PO (10:15)
[2023-09-18] MEDS ORDERED: OSEL75 PO (10:16)
[2023-09-18] MEDS ORDERED: ALBU18HF12 IH (10:16)
[2023-09-18] MEDS ORDERED: BENZ-227 PO (10:17)
== END 2023-09-18 12:40 | disposition home or self-care (01) | DRG 141 ==
LOC: EMS 14:58 → AHU 20:10 → 6N 21:51
PROVIDERS: ADMIT Internal Medicine; ATTEND Internal Medicine
DX: J45.901 Unspecified asthma with (acute) exacerbation (principal); E05.90 Thyrotoxicosis, unspecified without thyrotoxic crisis or storm; J10.1 Influenza due to other identified influenza virus with other respiratory manifestations; E66.9 Obesity, unspecified; F17.200 Nicotine dependence, unspecified, uncomplicated; J20.9 Acute bronchitis, unspecified; Z20.822 Contact with and (suspected) exposure to COVID-19; Z87.11 Personal history of peptic ulcer disease; Z91.148 Patient's other noncompliance with medication regimen for other reason; Z98.891 History of uterine scar from previous surgery; Z68.31 Body mass index [BMI] 31.0-31.9, adult
CPT/HCPCS: 0241U; 71045; 71275; 74019; 80053; 81001; 83880; 84443; 84484; 84703; 85025; 87040; 93005; 94640; 94644; 99291; C9113; J0456; J1885; J1940; J2060; J2270; J2405; J2765; J2930; J3535; J7050; J7120; Q9967; 36415-L1; 36415-TC; J7613

== ENCOUNTER 2023-11-24 15:22 | Emergency (ER) | payer OTHER ==
[~2023-11-24 15:22] MED LIST changes: +ALBU18HF12 IH; +AZIT500T4 PO; +BENZ-227 PO; -FERR-72 PO; -METH-386 PO; +METH-387 PO; +OSEL75 PO
== END 2023-11-24 16:28 | disposition left against medical advice (07) ==
LOC: EMS 15:25
DX: Z53.21 Procedure and treatment not carried out due to patient leaving prior to being seen by health care provider (principal)

== ENCOUNTER 2023-12-21 15:34 | Emergency (ER) | payer OTHER ==
[~2023-12-21] VITALS: Ht 170.2 cm; Wt 97.7 kg
[2023-12-21 15:36] VITALS: TEMP 98.9
[2023-12-21 16:16] LABS: BASOPHILS % (AUTO) 0.5 % (0.0-2.0); HEMATOCRIT 30.7 % (36-46); HEMOGLOBIN 9.5 g/dL (12.0-16.0); LYMPHOCYTES # (AUTO) 2.5 K/uL (1.0-4.8); LYMPHOCYTES % (AUTO) 27.3 % (22.0-44.0); MEAN CORPUSCULAR HEMOGLOBIN 20.8 pg (26.0-34.0); MEAN CORPUSCULAR HGB CONC 31.1 G/dL (31.0-37.0); MEAN CORPUSCULAR VOLUME 67 fL (80-100); MONOCYTES # (AUTO) 0.8 K/uL (0.1-1.0); MONOCYTES % (AUTO) 8.4 % (2.0-9.0); NEUTROPHILS # (AUTO) 5.8 K/uL (1.8-7.7); NEUTROPHILS % (AUTO) 62.8 % (40.0-70.0); PLATELET COUNT (AUTO) 530 K/uL (150-450); RED BLOOD CELL COUNT(AUTO) 4.59 MIL/uL (4.00-5.20); RED CELL DISTRIBUTION WIDTH 17.6 % (11.5-14.5); WHITE BLOOD COUNT (AUTO) 9.2 K/uL (4.5-11.0)
[2023-12-21 16:25] LABS: ANION GAP 10 mmol/L (8-16); CALCIUM, TOTAL 9.3 mg/dL (8.8-10.5); CARBON DIOXIDE 27 mmol/L (22-29); CHLORIDE 104 mmol/L (98-107); CREATININE 0.62 mg/dL (0.60-1.30); GLOMERULAR FILTR. RATE CALC > 60 mL/min (>60); GLUCOSE,RANDOM 92 mg/dL (70-110); POTASSIUM 4.3 mmol/L (3.5-5.1); SODIUM SERUM 141 mmol/L (136-145); UREA NITROGEN, BLOOD 17 mg/dL (7-18)
[2023-12-21 16:36] LABS: APPEARANCE,URINE CLEAR (CLEAR); BILIRUBIN,URINE NEGATIVE (NEGATIVE); COLOR,URINE LIGHT YELLOW (YELLOW); GLUCOSE, URINE (UA) NEGATIVE (NEGATIVE); KETONES,URINE NEGATIVE (NEGATIVE); LEUKOCYTE ESTERASE ,URINE NEGATIVE (NEGATIVE); NITRATE,URINE NEGATIVE (NEGATIVE); OCCULT BLOOD,URINE NEGATIVE (NEGATIVE); PROTEIN,URINE TRACE mg/dL (NEGATIVE); SPECIFIC GRAVITIY, URINE 1.027 (1.003-1.030); UROBILINOGEN,URINE <=1.0 mg/dL (<=1.0)
[2023-12-21 16:36] LABS: ALANINE AMINOTRANSFERASE 28 U/L (12-78); ALBUMIN 3.3 g/dL (3.4-5.0); ALKALINE PHOSPHATASE 82 U/L (46-116); ASPARTATE AMINOTRANSFERASE 18 U/L (15-37); BILIRUBIN,TOTAL 0.2 mg/dL (0.1-1.0); HCG,QUANTITATIVE < 1 mIU/mL (0-6); LIPASE 20 U/L (16-77); TOTAL PROTEIN, SERUM 7.5 g/dL (6.4-8.2)
[2023-12-21] MEDS: SODIUM CHLORIDE 0.9% 1,000 ML IV ONE (17:28)
[2023-12-21] MEDS: ACETAMINOPHEN 500 MG TABLET PO ONE (17:40)
[2023-12-21 18:24] VITALS: BP 130/76; PULSE 92; RESP 18
[2023-12-21] MEDS ORDERED: POLY119P3 PO (19:04)
[2023-12-21] MEDS: KETOROLAC TROMETHAMINE 30 MG/ML VIAL IM ONE (19:11)
== END 2023-12-21 19:29 | disposition home or self-care (01) ==
LOC: EMS 15:34
DX: R10.31 Right lower quadrant pain (principal); N83.201 Unspecified ovarian cyst, right side; J45.909 Unspecified asthma, uncomplicated; D64.9 Anemia, unspecified; F17.210 Nicotine dependence, cigarettes, uncomplicated; Z98.890 Other specified postprocedural states
CPT/HCPCS: 99285; 76856; 80053; 81003; 83690; 84702; 85025; 36415; 96372; J1885; J7030

== ENCOUNTER 2024-01-25 09:07 | Emergency (ER) | payer OTHER ==
[~2024-01-25] VITALS: Ht 170.2 cm; Wt 90.9 kg
[~2024-01-25 09:07] MED LIST changes: -AZIT500T4 PO; -BENZ-227 PO; -METH-387 PO; -OSEL75 PO; +POLY119P3 PO
[2024-01-25 09:15] VITALS: TEMP 98.4
[2024-01-25] MEDS: ACETAMINOPHEN 500 MG TABLET PO ONE (09:19)
[2024-01-25] MEDS: DiphenhydrAMINE HCL 50 MG/ML VIAL IVP ONE (09:20)
[2024-01-25] MEDS: METOCLOPRAMIDE HCL 5 MG/ML 2 ML VIAL IVP ONE (09:21)
[2024-01-25] MEDS: SODIUM CHLORIDE 0.9% 1,000 ML IV ONE (09:21)
[2024-01-25] MEDS ORDERED: FERR-72 PO (09:41)
[2024-01-25] MEDS ORDERED: SENN-297 PO (09:41)
[2024-01-25] MEDS ORDERED: NICO2GUM35 PO (09:41)
[2024-01-25] MEDS ORDERED: DICL100G60 TP (09:41)
[2024-01-25] MEDS ORDERED: BACL5TAB PO (09:41)
[2024-01-25] MEDS ORDERED: MONT-40 PO (09:41)
[2024-01-25] MEDS ORDERED: LIDO1ADH63 TP (09:41)
[2024-01-25] MEDS ORDERED: SERT-439 PO (09:41)
[2024-01-25] MEDS ORDERED: NICO-575 PO (09:41)
[2024-01-25] MEDS ORDERED: CYCL10TA16 PO (09:41)
[2024-01-25] MEDS ORDERED: HYDR-4061 PO (09:41)
[2024-01-25] MEDS ORDERED: METH-386 PO (09:41)
[2024-01-25] MEDS ORDERED: GABA-1181 PO (09:41)
[2024-01-25] MEDS ORDERED: MIRT-92 PO (09:41)
[2024-01-25] MEDS ORDERED: LIDO100S39 PO (09:41)
[2024-01-25] MEDS ORDERED: MELO-106 PO (09:41)
[2024-01-25] MEDS ORDERED: ACET-66 PO (09:41)
[2024-01-25] MEDS ORDERED: OMEP20CA12 PO (09:41)
[2024-01-25 10:12] LABS: BASOPHILS % (AUTO) 0.6 % (0.0-2.0); EOSINOPHILS % (AUTO) 0.6 % (1.0-6.0); HEMATOCRIT 27.5 % (36-46); HEMOGLOBIN 8.4 g/dL (12.0-16.0); LYMPHOCYTES # (AUTO) 1.8 K/uL (1.0-4.8); LYMPHOCYTES % (AUTO) 38.3 % (22.0-44.0); MEAN CORPUSCULAR HEMOGLOBIN 19.5 pg (26.0-34.0); MEAN CORPUSCULAR HGB CONC 30.6 G/dL (31.0-37.0); MEAN CORPUSCULAR VOLUME 64 fL (80-100); MONOCYTES # (AUTO) 0.6 K/uL (0.1-1.0); MONOCYTES % (AUTO) 13.1 % (2.0-9.0); NEUTROPHILS # (AUTO) 2.2 K/uL (1.8-7.7); NEUTROPHILS % (AUTO) 47.4 % (40.0-70.0); PLATELET COUNT (AUTO) 420 K/uL (150-450); RED CELL DISTRIBUTION WIDTH 18.7 % (11.5-14.5); WHITE BLOOD COUNT (AUTO) 4.7 K/uL (4.5-11.0)
[2024-01-25 10:34] LABS: TROPONIN I-HIGH SENSITIVITY 4 ng/L (<51)
[2024-01-25 10:39] LABS: ANION GAP 9 mmol/L (8-16); CALCIUM, TOTAL 8.7 mg/dL (8.8-10.5); CARBON DIOXIDE 23 mmol/L (22-29); CHLORIDE 109 mmol/L (98-107); GLOMERULAR FILTR. RATE CALC > 60 mL/min (>60); GLUCOSE,RANDOM 92 mg/dL (70-110); POTASSIUM 3.8 mmol/L (3.5-5.1); SODIUM SERUM 141 mmol/L (136-145); UREA NITROGEN, BLOOD 15 mg/dL (7-18)
[2024-01-25 10:47] LABS: ALANINE AMINOTRANSFERASE 30 U/L (12-78); ALBUMIN 2.9 g/dL (3.4-5.0); ALKALINE PHOSPHATASE 74 U/L (46-116); ASPARTATE AMINOTRANSFERASE 19 U/L (15-37); BILIRUBIN,TOTAL 0.2 mg/dL (0.1-1.0); TOTAL PROTEIN, SERUM 6.7 g/dL (6.4-8.2)
[2024-01-25 11:20] LABS: RBC MORPHOLOGY COMMENT ABNORMAL RBC MORPH
[2024-01-25] MEDS: MAGNESIUM SULFATE 1 GM in DEXTROSE 5%-WATER 50 ML IV ONE (11:48)
[2024-01-25] MEDS ORDERED: IBUP-1492 PO (12:18)
[2024-01-25] MEDS ORDERED: ACET-3385 PO (12:18)
[2024-01-25 14:04] VITALS: BP 140/53; PULSE 76; RESP 18
== END 2024-01-25 14:06 | disposition home or self-care (01) ==
LOC: EMS 09:07
DX: R51.9 Headache, unspecified (principal); E83.42 Hypomagnesemia; D64.9 Anemia, unspecified; J45.909 Unspecified asthma, uncomplicated; F17.210 Nicotine dependence, cigarettes, uncomplicated; Z98.890 Other specified postprocedural states
CPT/HCPCS: 99285; 96365; 70450; 96375; 96361; 80053; 83735; 84484; 84703; 85025; 36415; 93005; J1200; J2765; J7060; J3475; J7030

== ENCOUNTER 2024-02-15 16:05 | Emergency (ER) | payer OTHER ==
[~2024-02-15] VITALS: Ht 165.1 cm; Wt 106.8 kg
[~2024-02-15 16:05] MED LIST changes: +ACET-3385 PO; +ACET-66 PO; +BACL5TAB PO; +CYCL10TA16 PO; +DICL100G60 TP; +FERR-72 PO; +GABA-1181 PO; +HYDR-4061 PO; +IBUP-1492 PO; +LIDO100S39 PO; +LIDO1ADH63 TP; +MELO-106 PO; +METH-386 PO; +MIRT-92 PO; +MONT-40 PO; +NICO-575 PO; +NICO2GUM35 PO; +OMEP20CA12 PO; +SENN-297 PO; +SERT-439 PO
[2024-02-15 16:24] VITALS: BP 158/66; PULSE 90; RESP 20; TEMP 97.7
== END 2024-02-15 22:17 | disposition left against medical advice (07) ==
LOC: EMS 16:05
DX: R51.9 Headache, unspecified (principal); R07.9 Chest pain, unspecified; Z53.21 Procedure and treatment not carried out due to patient leaving prior to being seen by health care provider
CPT/HCPCS: 93005

== ENCOUNTER 2024-05-05 12:06 | Emergency (ER) | payer OTHER ==
[~2024-05-05] VITALS: Ht 172.7 cm; Wt 111.4 kg
[2024-05-05 12:26] VITALS: TEMP 98.2
[2024-05-05 13:10] LABS: BASOPHILS % (AUTO) 0.3 % (0.0-2.0); EOSINOPHILS % (AUTO) 0.7 % (1.0-6.0); HEMATOCRIT 32.7 % (36-46); HEMOGLOBIN 9.8 g/dL (12.0-16.0); LYMPHOCYTES # (AUTO) 1.5 K/uL (1.0-4.8); LYMPHOCYTES % (AUTO) 17.8 % (22.0-44.0); MEAN CORPUSCULAR HEMOGLOBIN 19.3 pg (26.0-34.0); MEAN CORPUSCULAR HGB CONC 30.1 G/dL (31.0-37.0); MEAN CORPUSCULAR VOLUME 64 fL (80-100); MONOCYTES # (AUTO) 0.5 K/uL (0.1-1.0); MONOCYTES % (AUTO) 5.9 % (2.0-9.0); NEUTROPHILS # (AUTO) 6.2 K/uL (1.8-7.7); NEUTROPHILS % (AUTO) 75.3 % (40.0-70.0); PLATELET COUNT (AUTO) 524 K/uL (150-450); RED BLOOD CELL COUNT(AUTO) 5.08 MIL/uL (4.00-5.20); WHITE BLOOD COUNT (AUTO) 8.2 K/uL (4.5-11.0)
[2024-05-05 13:14] LABS: ANION GAP 8 mmol/L (8-16); CALCIUM, TOTAL 8.5 mg/dL (8.8-10.5); CARBON DIOXIDE 26 mmol/L (22-29); CHLORIDE 104 mmol/L (98-107); CREATININE 0.87 mg/dL (0.60-1.30); GLOMERULAR FILTR. RATE CALC > 60 mL/min (>60); GLUCOSE,RANDOM 90 mg/dL (70-110); POTASSIUM 3.8 mmol/L (3.5-5.1); SODIUM SERUM 138 mmol/L (136-145); UREA NITROGEN, BLOOD 11 mg/dL (7-18)
[2024-05-05 13:20] LABS: ALANINE AMINOTRANSFERASE 21 U/L (12-78); ALBUMIN 3.6 g/dL (3.4-5.0); ALKALINE PHOSPHATASE 87 U/L (46-116); ASPARTATE AMINOTRANSFERASE 17 U/L (15-37); BILIRUBIN,TOTAL 0.3 mg/dL (0.1-1.0); LIPASE 18 U/L (16-77); TOTAL PROTEIN, SERUM 7.2 g/dL (6.4-8.2)
[2024-05-05] MEDS: MAG HYDROX/ALUMINUM HYD/SIMETH 30 ML SUSPENSION UDCUP PO ONE (13:22)
[2024-05-05] MEDS ORDERED: MORPHINE SULFATE 2 MG/ML SYRINGE IVP ONE (13:30)
[2024-05-05] MEDS: FAMOTIDINE 20 MG/2 ML VIAL IVP ONE (13:51)
[2024-05-05] MEDS: ONDANSETRON HCL 4 MG/2 ML VIAL IVP ONE (13:51)
[2024-05-05] MEDS: OMEPRAZOLE 20 MG CAPSULE PO ONE (14:57)
[2024-05-05] MEDS: MAG HYDROX/ALUMINUM HYD/SIMETH ES 30 ML SUSPENSION UDCUP PO ONE (14:57)
[2024-05-05] MEDS: DIPHENOXYLATE/ATROP 2.5-0.025 MG TABLET PO ONE (14:57)
[2024-05-05] MEDS: ACETAMINOPHEN 500 MG TABLET PO ONE (14:58)
[2024-05-05 17:28] VITALS: BP 127/84; PULSE 78; RESP 16
[2024-05-05] MEDS ORDERED: PERCT PO (17:29)
[2024-05-05] MEDS ORDERED: SULF-261 PO (17:29)
[2024-05-05] MEDS ORDERED: ONDA-104 PO (17:29)
[2024-05-05] MEDS ORDERED: DIPH-1130 PO (17:29)
== END 2024-05-05 17:58 | disposition home or self-care (01) ==
LOC: EMS 12:06
DX: K52.9 Noninfective gastroenteritis and colitis, unspecified (principal); R10.84 Generalized abdominal pain; J45.909 Unspecified asthma, uncomplicated; E05.90 Thyrotoxicosis, unspecified without thyrotoxic crisis or storm; F17.210 Nicotine dependence, cigarettes, uncomplicated; Z98.890 Other specified postprocedural states
CPT/HCPCS: 99285; 74176; 96374; 96375; 80048; 80076; 83690; 84703; 85025; 36415; J3490; J2405

== ENCOUNTER 2024-08-02 18:38 | Emergency (ER) | payer OTHER ==
[~2024-08-02] VITALS: Ht 170.2 cm; Wt 104.5 kg
[~2024-08-02 18:38] MED LIST changes: +DIPH-1130 PO; +ONDA-104 PO; +PERCT PO; +SULF-261 PO
[2024-08-02 18:45] VITALS: TEMP 98.6
[2024-08-02 20:26] VITALS: BP 144/81; PULSE 86; RESP 14; O2SAT 98
[2024-08-02] MEDS: KETOROLAC TROMETHAMINE 60 MG/2 ML VIAL IM ONE (21:13)
[2024-08-02] MEDS: ACETAMINOPHEN 500 MG TABLET PO ONE (21:13)
[2024-08-02] MEDS: METHOCARBAMOL 500 MG TABLET PO ONE (21:13)
[2024-08-02] MEDS ORDERED: METH-659 PO (21:52)
[2024-08-02] MEDS ORDERED: IBUP-1492 PO (21:52)
[2024-08-02] MEDS ORDERED: ACET-3385 PO (21:52)
== END 2024-08-02 22:49 | disposition home or self-care (01) ==
LOC: EMS 18:38
DX: S83.92XA Sprain of unspecified site of left knee, initial encounter (principal); S93.402A Sprain of unspecified ligament of left ankle, initial encounter; S20.229A Contusion of unspecified back wall of thorax, initial encounter; F17.210 Nicotine dependence, cigarettes, uncomplicated; J45.909 Unspecified asthma, uncomplicated; Z79.1 Long term (current) use of non-steroidal anti-inflammatories (NSAID); Z79.899 Other long term (current) drug therapy; W01.0XXA Fall on same level from slipping, tripping and stumbling without subsequent striking against object, initial encounter; Y93.89 Activity, other specified; Y92.89 Other specified places as the place of occurrence of the external cause; Y99.8 Other external cause status
CPT/HCPCS: 99284; 72100; 73562; 73610; J1885

== ENCOUNTER → 2024-08-17 | Emergency (ER) | payer OTHER ==
[~2024-08-17] VITALS: Ht 172.7 cm; Wt 106.8 kg
[~2024-08-17] MED LIST changes: +IBUP-1554 PO; +LORA-1000 PO; +METH-659 PO
[2024-08-17 14:14] VITALS: BP 111/85; PULSE 85; RESP 19; TEMP 96.7; O2SAT 100
[2024-08-17] MEDS: LORazepam 2 MG TABLET PO ONE (15:52)
[2024-08-17] MEDS: IBUPROFEN 600 MG TABLET PO ONE (15:52)
== END | disposition still patient (30) ==
LOC: EMS 14:02
DX: M25.512 Pain in left shoulder (principal); G89.4 Chronic pain syndrome; M54.50 Low back pain, unspecified; F41.9 Anxiety disorder, unspecified; F39 Unspecified mood [affective] disorder; J45.909 Unspecified asthma, uncomplicated; F17.210 Nicotine dependence, cigarettes, uncomplicated; E05.90 Thyrotoxicosis, unspecified without thyrotoxic crisis or storm; Z98.890 Other specified postprocedural states; Z79.1 Long term (current) use of non-steroidal anti-inflammatories (NSAID)
CPT/HCPCS: 29240; 99283

== ENCOUNTER 2024-10-20 17:42 | Emergency (ER) | payer OTHER ==
[~2024-10-20 17:42] MED LIST changes: -ACET-3385 PO; -ACET-66 PO; -DIPH-1130 PO; -HYDR-4061 PO; -IBUP-1492 PO; -NICO2GUM35 PO; -ONDA-104 PO; -PERCT PO; -POLY119P3 PO; -SENN-297 PO; -SULF-261 PO
== END 2024-10-20 18:01 | disposition left against medical advice (07) ==
LOC: EMS 17:42
DX: Z53.21 Procedure and treatment not carried out due to patient leaving prior to being seen by health care provider (principal)

== ENCOUNTER → 2024-11-02 | Emergency (ER) | payer OTHER ==
[~2024-11-02] VITALS: Ht 165.1 cm; Wt 90.9 kg
[~2024-11-02] MED LIST changes: +BENZ-227 PO; +IOHEXOL 350 MG/ML 100 ML VIAL ONE; -LORA-1000 PO; +LORA1TAB25 PO; +SODIUM CHLORIDE 0.9% 100 ML ONE
[2024-11-02 11:42] VITALS: TEMP 98.2
[2024-11-02 12:21] LABS: COVID AG,FIA SOURCE NASAL SWAB
[2024-11-02] MEDS: SODIUM CHLORIDE 0.9% 1,000 ML IV ONE (12:54)
[2024-11-02] MEDS: KETOROLAC TROMETHAMINE 30 MG/ML VIAL IVP ONE (12:54)
[2024-11-02] MEDS: DEXAMETHASONE SOD PHOS 4 MG/ML 5 ML VIAL IVP ONE (12:55)
[2024-11-02 12:58] LABS: BASOPHILS % (AUTO) 1.8 % (0.0-2.0); EOSINOPHILS % (AUTO) 0.2 % (1.0-6.0); HEMATOCRIT 27.4 % (36-46); LYMPHOCYTES # (AUTO) 5.5 K/uL (1.0-4.8); LYMPHOCYTES % (AUTO) 43.5 % (22.0-44.0); MEAN CORPUSCULAR HEMOGLOBIN 19.1 pg (26.0-34.0); MEAN CORPUSCULAR HGB CONC 29.4 G/dL (31.0-37.0); MEAN CORPUSCULAR VOLUME 65 fL (80-100); MONOCYTES # (AUTO) 1.3 K/uL (0.1-1.0); MONOCYTES % (AUTO) 10.1 % (2.0-9.0); NEUTROPHILS # (AUTO) 5.6 K/uL (1.8-7.7); NEUTROPHILS % (AUTO) 44.4 % (40.0-70.0); PLATELET COUNT (AUTO) 554 K/uL (150-450); RED BLOOD CELL COUNT(AUTO) 4.22 MIL/uL (4.00-5.20); RED CELL DISTRIBUTION WIDTH 19.7 % (11.5-14.5); WHITE BLOOD COUNT (AUTO) 12.7 K/uL (4.5-11.0)
[2024-11-02 13:00] LABS: RBC MORPHOLOGY COMMENT ABNORMAL RBC MORPH
[2024-11-02 13:07] LABS: ANION GAP 3 mmol/L (8-16); CALCIUM, TOTAL 8.5 mg/dL (8.8-10.5); CARBON DIOXIDE 30 mmol/L (22-29); CHLORIDE 108 mmol/L (98-107); CREATININE 0.84 mg/dL (0.60-1.30); GLOMERULAR FILTR. RATE CALC > 60 mL/min (>60); GLUCOSE,RANDOM 89 mg/dL (70-110); POTASSIUM 3.7 mmol/L (3.5-5.1); SODIUM SERUM 141 mmol/L (136-145); UREA NITROGEN, BLOOD 15 mg/dL (7-18)
[2024-11-02 13:17] LABS: RAPID GROUP A STREP NEGATIVE (NEGATIVE)
[2024-11-02 13:18] LABS: SARS-COV2 (COVID) ANTIGEN,FIA Negative (Negative)
[2024-11-02 13:19] LABS: INFLUENZA TYPE A NEGATIVE FOR TYPE A (NEGATIVE); INFLUENZA TYPE B NEGATIVE FOR TYPE B (NEGATIVE)
[2024-11-02 13:23] LABS: THYROID STIMULATING HORMONE 6.26 uIU/mL (0.36-3.74)
[2024-11-02] MEDS: GuaiFENesin/D-METHORPHAN/PHENYLEPH 5 ML LIQUID ORAL.SYG PO ONE (13:27)
[2024-11-02 13:40] VITALS: BP 134/70; PULSE 78; RESP 18; O2SAT 99
== END | disposition home or self-care (01) ==
LOC: EMS 11:38
DX: J02.8 Acute pharyngitis due to other specified organisms (principal); B97.89 Other viral agents as the cause of diseases classified elsewhere; J45.909 Unspecified asthma, uncomplicated; E05.90 Thyrotoxicosis, unspecified without thyrotoxic crisis or storm; F17.210 Nicotine dependence, cigarettes, uncomplicated; M54.2 Cervicalgia; Z79.1 Long term (current) use of non-steroidal anti-inflammatories (NSAID); Z79.899 Other long term (current) drug therapy; Z20.822 Contact with and (suspected) exposure to COVID-19
CPT/HCPCS: 99285; 96374; 70491; 96361; 96375; 87426; 80048; 84443; 84703; 85025; 87430; 87804; 36415; J1885; Q9967; J1100; J7030; J7050

== ENCOUNTER 2025-01-12 20:02 | Emergency (ER) | payer OTHER ==
[~2025-01-12] VITALS: Ht 172.7 cm; Wt 106.8 kg
[~2025-01-12 20:02] MED LIST changes: -IOHEXOL 350 MG/ML 100 ML VIAL ONE; -SODIUM CHLORIDE 0.9% 100 ML ONE
[2025-01-12 20:19] VITALS: TEMP 99.3
[2025-01-12 20:33] LABS: COVID AG,FIA SOURCE NASAL SWAB
[2025-01-12 20:59] LABS: INFLUENZA TYPE A NEGATIVE FOR TYPE A (NEGATIVE); INFLUENZA TYPE B NEGATIVE FOR TYPE B (NEGATIVE); SARS-COV2 (COVID) ANTIGEN,FIA Negative (Negative)
[2025-01-12] MEDS: SODIUM CHLORIDE 0.9% 1,000 ML IV ONE (23:21)
[2025-01-12] MEDS: MORPHINE SULFATE 2 MG/ML SYRINGE IVP ONE (23:21)
[2025-01-12] MEDS: KETOROLAC TROMETHAMINE 30 MG/ML VIAL IVP ONE (23:22)
[2025-01-12] MEDS: FAMOTIDINE 20 MG/2 ML VIAL IVP ONE (23:22)
[2025-01-12] MEDS: ONDANSETRON HCL 4 MG/2 ML VIAL IVP ONE (23:23)
[2025-01-13 01:12] LABS: BASOPHILS % (AUTO) 0.4 % (0.0-2.0); EOSINOPHILS % (AUTO) 1.1 % (1.0-6.0); HEMATOCRIT 27.5 % (36-46); HEMOGLOBIN 8.1 g/dL (12.0-16.0); LYMPHOCYTES # (AUTO) 1.8 K/uL (1.0-4.8); LYMPHOCYTES % (AUTO) 24.2 % (22.0-44.0); MEAN CORPUSCULAR HEMOGLOBIN 18.9 pg (26.0-34.0); MEAN CORPUSCULAR HGB CONC 29.6 G/dL (31.0-37.0); MEAN CORPUSCULAR VOLUME 64 fL (80-100); MONOCYTES # (AUTO) 0.6 K/uL (0.1-1.0); MONOCYTES % (AUTO) 7.8 % (2.0-9.0); NEUTROPHILS % (AUTO) 66.5 % (40.0-70.0); PLATELET COUNT (AUTO) 416 K/uL (150-450); RED CELL DISTRIBUTION WIDTH 20.1 % (11.5-14.5); WHITE BLOOD COUNT (AUTO) 7.5 K/uL (4.5-11.0)
[2025-01-13 01:20] LABS: ANION GAP 7 mmol/L (8-16); CARBON DIOXIDE 24 mmol/L (22-29); CHLORIDE 105 mmol/L (98-107); CREATININE 0.62 mg/dL (0.60-1.30); GLOMERULAR FILTR. RATE CALC > 60 mL/min (>60); GLUCOSE,RANDOM 75 mg/dL (70-110); LIPASE 21 U/L (16-77); POTASSIUM 3.7 mmol/L (3.5-5.1); SODIUM SERUM 136 mmol/L (136-145); UREA NITROGEN, BLOOD 11 mg/dL (7-18)
[2025-01-13 01:26] LABS: ALBUMIN 3.2 g/dL (3.4-5.0); BILIRUBIN,DIRECT 0.1 mg/dL (0.00-0.20); BILIRUBIN,TOTAL 0.2 mg/dL (0.1-1.0); TOTAL PROTEIN, SERUM 6.6 g/dL (6.4-8.2)
[2025-01-13 01:55] LABS: RBC MORPHOLOGY COMMENT ABNORMAL RBC MORPH
[2025-01-13 06:00] VITALS: BP 121/79; PULSE 96; RESP 17; O2SAT 98
[2025-01-13] MEDS ORDERED: ONDA-104 PO (06:06)
== END 2025-01-13 07:11 | disposition home or self-care (01) ==
LOC: EMS 20:02
DX: K52.9 Noninfective gastroenteritis and colitis, unspecified (principal); J45.909 Unspecified asthma, uncomplicated; F17.210 Nicotine dependence, cigarettes, uncomplicated; Z79.1 Long term (current) use of non-steroidal anti-inflammatories (NSAID); Z79.899 Other long term (current) drug therapy; Z20.822 Contact with and (suspected) exposure to COVID-19
CPT/HCPCS: 99285; 70450; 96374; 96375; 96361; 87426; 80048; 80076; 83690; 84703; 85025; 87804; 36415; 74176; J1885; J3490; J2270; J2405; J7030

== ENCOUNTER 2025-03-14 12:47 | Emergency (ER) | payer OTHER ==
[~2025-03-14] VITALS: Ht 170.2 cm; Wt 109.0 kg
[~2025-03-14 12:47] MED LIST changes: +ONDA-104 PO
[2025-03-14 13:04] VITALS: BP 128/62; PULSE 91; RESP 18; TEMP 98.4; O2SAT 100
[2025-03-14 13:56] LABS: COVID AG,FIA SOURCE NASAL SWAB
[2025-03-14] MEDS ORDERED: CEPH-558 PO (14:21)
[2025-03-14] MEDS ORDERED: ACET-2080 PO (14:21)
[2025-03-14] MEDS ORDERED: PROM6.2527 PO (14:21)
[2025-03-14] MEDS ORDERED: BENZ-227 PO (14:21)
[2025-03-14 14:22] LABS: SARS-COV2 (COVID) ANTIGEN,FIA Negative (Negative)
[2025-03-14 14:23] LABS: INFLUENZA TYPE A NEGATIVE FOR TYPE A (NEGATIVE); INFLUENZA TYPE B NEGATIVE FOR TYPE B (NEGATIVE)
== END 2025-03-14 15:02 | disposition home or self-care (01) ==
LOC: EMS 13:02
DX: J18.9 Pneumonia, unspecified organism (principal); J45.909 Unspecified asthma, uncomplicated; F17.210 Nicotine dependence, cigarettes, uncomplicated; Z20.822 Contact with and (suspected) exposure to COVID-19; Z98.890 Other specified postprocedural states; Z79.1 Long term (current) use of non-steroidal anti-inflammatories (NSAID); Z79.899 Other long term (current) drug therapy
CPT/HCPCS: 71045; 87804; 93005; 99285

== ENCOUNTER 2025-04-16 20:35 | Emergency (ER) | payer OTHER ==
[~2025-04-16] VITALS: Ht 170.2 cm; Wt 111.0 kg
[~2025-04-16 20:35] MED LIST changes: +ACET-2080 PO; +CEPH-558 PO; +PROM6.2527 PO
[2025-04-16 20:55] VITALS: BP 138/61; PULSE 87; RESP 18; TEMP 98.1; O2SAT 100
[2025-04-16 23:50] LABS: PLATELET COUNT (AUTO) 486 K/uL (150-450); RED BLOOD CELL COUNT(AUTO) 4.37 MIL/uL (4.00-5.20); RED CELL DISTRIBUTION WIDTH 20.2 % (11.5-14.5); WHITE BLOOD COUNT (AUTO) 9.6 K/uL (4.5-11.0)
[2025-04-17 00:02] LABS: CALCIUM, TOTAL 9.3 mg/dL (8.8-10.5); CREATININE 0.87 mg/dL (0.60-1.30); GLOMERULAR FILTR. RATE CALC > 60 mL/min (>60); GLUCOSE,RANDOM 115 mg/dL (70-110); SODIUM SERUM 141 mmol/L (136-145); UREA NITROGEN, BLOOD 17 mg/dL (7-18)
[2025-04-17 00:07] LABS: ASPARTATE AMINOTRANSFERASE 16 U/L (15-37); CREATINE KINASE, TOTAL ONLY 155 U/L (26-192); TOTAL PROTEIN, SERUM 7.0 g/dL (6.4-8.2)
[2025-04-17 00:09] LABS: RBC MORPHOLOGY COMMENT ABNORMAL RBC MORPH
[2025-04-17 00:13] LABS: TROPONIN I-HIGH SENSITIVITY Less Than 4 ng/L (<51)
[2025-04-17] MEDS: SODIUM CHLORIDE 0.9% 1,000 ML IV ONE (00:27)
[2025-04-17] MEDS: ACETAMINOPHEN 325 MG TABLET PO ONE (00:28)
[2025-04-17] MEDS: KETOROLAC TROMETHAMINE 30 MG/ML VIAL IVP ONE (00:28)
[2025-04-17 01:14] LABS: APPEARANCE,URINE CLEAR (CLEAR); GLUCOSE, URINE (UA) NEGATIVE (NEGATIVE); LEUKOCYTE ESTERASE ,URINE NEGATIVE (NEGATIVE); NITRATE,URINE NEGATIVE (NEGATIVE); OCCULT BLOOD,URINE NEGATIVE (NEGATIVE); SPECIFIC GRAVITIY, URINE 1.021 (1.003-1.030)
== END 2025-04-17 04:33 | disposition home or self-care (01) ==
LOC: EMS 20:35
DX: D64.9 Anemia, unspecified (principal); R51.9 Headache, unspecified; J45.909 Unspecified asthma, uncomplicated; E05.90 Thyrotoxicosis, unspecified without thyrotoxic crisis or storm; Z98.890 Other specified postprocedural states; F17.210 Nicotine dependence, cigarettes, uncomplicated; Z79.1 Long term (current) use of non-steroidal anti-inflammatories (NSAID); Z79.899 Other long term (current) drug therapy
CPT/HCPCS: 99285; 71045; 80048; 80076; 81003; 82550; 83880; 84484; 84703; 85025; 85610; 85730; 36415; 93005; 96374; 96361; J1885; J7030

== ENCOUNTER 2025-05-16 11:14 | Emergency (ER) | payer OTHER ==
[~2025-05-16] VITALS: Ht 170.2 cm; Wt 111.4 kg
[2025-05-16 11:17] VITALS: TEMP 98.1
[2025-05-16] MEDS ORDERED: AMOX500T2 PO (11:23)
[2025-05-16 12:08] LABS: PLATELET COUNT (AUTO) 390 K/uL (150-450); RED BLOOD CELL COUNT(AUTO) 4.96 MIL/uL (4.00-5.20); RED CELL DISTRIBUTION WIDTH 27.3 % (11.5-14.5); WHITE BLOOD COUNT (AUTO) 7.7 K/uL (4.5-11.0)
[2025-05-16 12:10] LABS: CALCIUM, TOTAL 9.4 mg/dL (8.8-10.5); CREATININE 0.77 mg/dL (0.60-1.30); GLOMERULAR FILTR. RATE CALC > 60 mL/min (>60); GLUCOSE,RANDOM 82 mg/dL (70-110); SODIUM SERUM 138 mmol/L (136-145); UREA NITROGEN, BLOOD 16 mg/dL (7-18)
[2025-05-16 12:20] LABS: RBC MORPHOLOGY COMMENT ABNORMAL RBC MORPH
[2025-05-16 12:24] LABS: HCG,QUANTITATIVE < 1 mIU/mL (0-6)
[2025-05-16 12:34] LABS: APPEARANCE,URINE CLEAR (CLEAR); GLUCOSE, URINE (UA) NEGATIVE (NEGATIVE); LEUKOCYTE ESTERASE ,URINE MODERATE (NEGATIVE); NITRATE,URINE NEGATIVE (NEGATIVE); OCCULT BLOOD,URINE NEGATIVE (NEGATIVE); SPECIFIC GRAVITIY, URINE 1.032 (1.003-1.030)
[2025-05-16 12:43] LABS: SQUAMOUS EPITHELIAL CELL,UR Few /LPF (None Seen)
[2025-05-16 12:44] LABS: YEAST,URINE Few /HPF (None Seen)
[2025-05-16] MEDS: ONDANSETRON 4 MG TABLET PO ONE (14:13)
[2025-05-16] MEDS: DIPHENOXYLATE/ATROP 2.5-0.025 MG TABLET PO ONE (14:14)
[2025-05-16 14:30] VITALS: BP 144/68; PULSE 63; RESP 19; O2SAT 99
[2025-05-16] MEDS ORDERED: ONDA-104 PO (14:47)
[2025-05-16] MEDS ORDERED: CLOT21CR13 VG (14:47)
[2025-05-16] MEDS ORDERED: DIPH-1130 PO (14:47)
[2025-05-16] MEDS ORDERED: ACET-66 PO (14:47)
== END 2025-05-16 15:06 | disposition home or self-care (01) ==
LOC: EMS 11:29
DX: K52.9 Noninfective gastroenteritis and colitis, unspecified (principal); D50.9 Iron deficiency anemia, unspecified; J45.909 Unspecified asthma, uncomplicated; N89.8 Other specified noninflammatory disorders of vagina; E05.90 Thyrotoxicosis, unspecified without thyrotoxic crisis or storm; F17.210 Nicotine dependence, cigarettes, uncomplicated; Z98.890 Other specified postprocedural states; Z79.899 Other long term (current) drug therapy
CPT/HCPCS: 99284; 76770; 80048; 81001; 83690; 84702; 85025; 36415; 76856; Q0162

== ENCOUNTER 2025-06-01 15:54 | Inpatient (IN) | payer OTHER ==
[~2025-06-01] VITALS: Ht 170.2 cm; Wt 112.7 kg
[~2025-06-01 15:54] MED LIST changes: -ACET-2080 PO; +ACET-66 PO; -ALBU18HF12 IH; +AMOX500T2 PO; -BACL5TAB PO; -BENZ-227 PO; +CLOT21CR13 VG; -CYCL10TA16 PO; -DICL100G60 TP; +DIPH-1130 PO; -FERR-72 PO; -GABA-1181 PO; -LIDO100S39 PO; -LIDO1ADH63 TP; -LORA1TAB25 PO; -MELO-106 PO; -METH-659 PO; -MIRT-92 PO; -MONT-40 PO; -NICO-575 PO; -OMEP20CA12 PO; -PROM6.2527 PO; -SERT-439 PO
[2025-06-01 16:54] LABS: PLATELET COUNT (AUTO) 381 K/uL (150-450); RED BLOOD CELL COUNT(AUTO) 4.56 MIL/uL (4.00-5.20); RED CELL DISTRIBUTION WIDTH 29.6 % (11.5-14.5); WHITE BLOOD COUNT (AUTO) 10.9 K/uL (4.5-11.0)
[2025-06-01 16:59] LABS: CALCIUM, TOTAL 8.0 mg/dL (8.8-10.5); CREATININE 0.79 mg/dL (0.60-1.30); GLOMERULAR FILTR. RATE CALC > 60 mL/min (>60); GLUCOSE,RANDOM 92 mg/dL (70-110); SODIUM SERUM 141 mmol/L (136-145); UREA NITROGEN, BLOOD 18 mg/dL (7-18)
[2025-06-01 17:09] LABS: RBC MORPHOLOGY COMMENT ABNORMAL RBC MORPH; TROPONIN I-HIGH SENSITIVITY 4 ng/L (<51)
[2025-06-01] MEDS ORDERED: SODIUM CHLORIDE 0.9% 100 ML ONE (20:50)
[2025-06-01] MEDS ORDERED: IOHEXOL 350 MG/ML 100 ML VIAL ONE (20:50)
[2025-06-01] MEDS: ONDANSETRON HCL 4 MG/2 ML VIAL IVP ONE (21:12)
[2025-06-01] MEDS: PB/HYOSCY/ATR/SCOP/LIDO/MAALOX 55 ML BOTTLE PO ONE (21:12)
[2025-06-01] MEDS ORDERED: MAGNESIUM HYDROXIDE SUSPENSION 30 ML UDCUP PO PRN (21:15)
[2025-06-01] MEDS ORDERED: ONDANSETRON HCL 4 MG/2 ML VIAL IVP PRN (21:15)
[2025-06-01] MEDS ORDERED: HYDROCODONE/ACETAMINOPHEN 5-325 MG TABLET PO PRN (21:15)
[2025-06-01] MEDS ORDERED: MORPHINE SULFATE 2 MG/ML SYRINGE IVP PRN (21:15)
[2025-06-01] MEDS ORDERED: ZOLPIDEM TARTRATE 5 MG TABLET PO PRN (21:15)
[2025-06-01] MEDS ORDERED: BISACODYL 10 MG RECTAL RECTAL SUPPOSITORY PR PRN (21:15)
[2025-06-01] MEDS: AMOXICILLIN TRIHYDRATE 250 MG CAPSULE PO ONE (21:57)
[2025-06-01] MEDS: HEPARIN SODIUM,PORCINE 5,000 UNITS/ML VIAL SQ SCH (23:25)
[2025-06-02] MEDS: OXYMETAZOLINE HCL 0.05% 15 ML NASAL SPRAY NASAL ONE (01:05)
[2025-06-02] MEDS: BENZONATATE 100 MG CAPSULE PO ONE (01:23)
[2025-06-02 06:38] LABS: TROPONIN I-HIGH SENSITIVITY 4 ng/L (<51)
[2025-06-02] MEDS: BENZOCAINE/MENTHOL [CEPACOL] LOZENGE PO ONE (06:42)
[2025-06-02] MEDS: PANTOPRAZOLE SODIUM 40 MG DR TABLET PO SCH (08:23)
[2025-06-02] MEDS: DOCUSATE SODIUM 100 MG CAPSULE PO SCH (08:23)
[2025-06-02 09:13] VITALS: BP 121/63; PULSE 77; RESP 18; TEMP 98.1; O2SAT 98
[2025-06-02] MEDS: AMOXICILLIN TRIHYDRATE 500 MG CAPSULE PO SCH (12:26)
[2025-06-02 13:05] LABS: INFLUENZA A-RTPCR,COMBO NEGATIVE (NEGATIVE); INFLUENZA B-RTPCR,COMBO NEGATIVE (NEGATIVE); RESPIRATORY SYNCYTIAL VRS-PCR NEGATIVE (NEGATIVE); SARS COVID19 RTPCR, COMBO POSITIVE (NEGATIVE)
[2025-06-02] MEDS: ACETAMINOPHEN 325 MG TABLET PO PRN (13:44)
[2025-06-02 15:34] VITALS: BP 110/76; PULSE 63; RESP 18; TEMP 98.1; O2SAT 98
[2025-06-02] MEDS: SODIUM CHLORIDE 0.9% 1,000 ML IV ONE (17:42)
[2025-06-02] MEDS: REMDESIVIR 200 MG in SODIUM CHLORIDE 0.9% 250 ML IV ONE (17:42)
[2025-06-02] MEDS: AZITHROMYCIN 500 MG TABLET PO SCH (21:41)
[2025-06-02] MEDS: GuaiFENesin/CODEINE [SUGAR-FREE] 200-20MG/10 ML LIQUID UDCUP PO PRN (21:42)
[2025-06-02 21:47] VITALS: BP 148/77; PULSE 95; RESP 19; TEMP 98.6; O2SAT 100
[2025-06-02 23:48] VITALS: BP 131/57; PULSE 87; RESP 18; TEMP 98.8; O2SAT 97
[2025-06-03] VITALS (8 sets, daily range): BP systolic 100–137; BP diastolic 55–86; PULSE 67–88; RESP 16–20; TEMP 98.1–98.8; O2SAT 97–99
[2025-06-03] MEDS: MELATONIN 5 MG TABLET PO PRN (01:00)
[2025-06-03] MEDS: IPRATROPIUM BROMIDE 0.5 MG/2.5 ML NEB SOLUTION NEB PRN (08:53)
[2025-06-03] MEDS: ALBUTEROL SULFATE 2.5 MG/0.5 ML NEB SOLUTION NEB PRN (08:53)
[2025-06-03] MEDS: REMDESIVIR 100 MG in SODIUM CHLORIDE 0.9% 250 ML IV SCH (15:31)
[2025-06-03] MEDS: ONDANSETRON 4 MG TABLET PO PRN (23:24)
[2025-06-03] MEDS: NICOTINE 14 MG/24 HOUR PATCH TD SCH (23:33)
[2025-06-04 06:25] LABS: PLATELET COUNT (AUTO) 373 K/uL (150-450); RED BLOOD CELL COUNT(AUTO) 4.70 MIL/uL (4.00-5.20); RED CELL DISTRIBUTION WIDTH 30.4 % (11.5-14.5); WHITE BLOOD COUNT (AUTO) 14.6 K/uL (4.5-11.0)
[2025-06-04 06:49] LABS: ASPARTATE AMINOTRANSFERASE 11 U/L (15-37); CALCIUM, TOTAL 8.2 mg/dL (8.8-10.5); CREATININE 0.68 mg/dL (0.60-1.30); GLOMERULAR FILTR. RATE CALC > 60 mL/min (>60); GLUCOSE,RANDOM 113 mg/dL (70-110); SODIUM SERUM 140 mmol/L (136-145); TOTAL PROTEIN, SERUM 6.8 g/dL (6.4-8.2); UREA NITROGEN, BLOOD 14 mg/dL (7-18)
[2025-06-04 07:11] LABS: RBC MORPHOLOGY COMMENT ABNORMAL RBC MORPH
[2025-06-04 08:00] VITALS: BP 113/60; PULSE 70; RESP 20; TEMP 98.8; O2SAT 95
[2025-06-04] MEDS ORDERED: BENZOCAINE/MENTHOL [CEPACOL] LOZENGE PO PRN (10:45)
[2025-06-04 11:24] VITALS: BP 125/83; PULSE 75; RESP 20; TEMP 98.4; O2SAT 98
[2025-06-04 14:00] VITALS: BP 140/70; PULSE 79; RESP 18; TEMP 100.2; O2SAT 99
[2025-06-04] MEDS: IBUPROFEN 800 MG TABLET PO PRN (14:53)
[2025-06-04 15:58] VITALS: BP 108/67; PULSE 72; RESP 19; TEMP 98.2; O2SAT 98
[2025-06-04 19:56] VITALS: BP 101/56; PULSE 78; RESP 19; TEMP 98.4; O2SAT 99
[2025-06-04] MEDS: SODIUM CHLORIDE 0.9% 1,000 ML IV ONE (21:30)
[2025-06-05 07:06] VITALS: BP 130/70; PULSE 62; RESP 18; TEMP 98.2; O2SAT 99
[2025-06-05 08:28] LABS: CALCIUM, TOTAL 7.8 mg/dL (8.8-10.5); CREATININE 0.80 mg/dL (0.60-1.30); GLOMERULAR FILTR. RATE CALC > 60 mL/min (>60); GLUCOSE,RANDOM 150 mg/dL (70-110); SODIUM SERUM 140 mmol/L (136-145); TOTAL PROTEIN, SERUM 6.3 g/dL (6.4-8.2)
[2025-06-05 09:49] VITALS: PULSE 79; TEMP 98.2
[2025-06-05 11:02] LABS: UREA NITROGEN, BLOOD 18 mg/dL (7-18)
[2025-06-05 13:18] LABS: ASPARTATE AMINOTRANSFERASE 20 U/L (15-37)
[2025-06-05 15:02] VITALS: BP 117/62; PULSE 78; RESP 18; TEMP 98.2; O2SAT 99
[2025-06-05 20:05] VITALS: BP 120/67; PULSE 76; RESP 18; TEMP 98; O2SAT 98
[2025-06-05] MEDS: GuaiFENesin/CODEINE [SUGAR-FREE] 200-20MG/10 ML LIQUID UDCUP PO PRN (22:47)
[2025-06-06 05:30] VITALS: BP 112/73; PULSE 64; RESP 18; TEMP 98.8; O2SAT 98
[2025-06-06 07:09] LABS: ASPARTATE AMINOTRANSFERASE 10 U/L (15-37); CALCIUM, TOTAL 7.8 mg/dL (8.8-10.5); CREATININE 0.66 mg/dL (0.60-1.30); GLOMERULAR FILTR. RATE CALC > 60 mL/min (>60); GLUCOSE,RANDOM 99 mg/dL (70-110); SODIUM SERUM 141 mmol/L (136-145); TOTAL PROTEIN, SERUM 6.4 g/dL (6.4-8.2); UREA NITROGEN, BLOOD 13 mg/dL (7-18)
[2025-06-06 08:37] VITALS: BP 118/80; PULSE 73; RESP 18; TEMP 98.2; O2SAT 100
[2025-06-06] MEDS ORDERED: DEXA2 PO (08:44)
[2025-06-06] MEDS ORDERED: CODE10LI2 PO (08:44)
[2025-06-06] MEDS ORDERED: AMOX-457 PO (08:44)
[2025-06-06 10:33] LABS: COVID AG,FIA SOURCE NASAL SWAB
[2025-06-06 12:07] LABS: SARS-COV2 (COVID) ANTIGEN,FIA Positive (Negative)
== END 2025-06-06 17:45 | disposition home or self-care (01) | DRG 137 ==
LOC: EMS 15:54 → EDH 21:02 → 5N 06-02 08:35 → 4E 06-04 17:55
PROVIDERS: ADMIT Internal Medicine; ATTEND Internal Medicine
PROC: XW033E5 Introduction of Remdesivir Anti-infective into Peripheral Vein, Percutaneous Approach, New Technology Group 5 (ICD-10-PCS; principal; 2025-06-03)
DX: U07.1 COVID-19 (principal); I24.9 Acute ischemic heart disease, unspecified; D64.9 Anemia, unspecified; I10 Essential (primary) hypertension; E05.90 Thyrotoxicosis, unspecified without thyrotoxic crisis or storm; E03.9 Hypothyroidism, unspecified; J45.909 Unspecified asthma, uncomplicated; T78.49XA Other allergy, initial encounter; X58.XXXA Exposure to other specified factors, initial encounter; T50.905A Adverse effect of unspecified drugs, medicaments and biological substances, initial encounter; E66.9 Obesity, unspecified; Z68.38 Body mass index [BMI] 38.0-38.9, adult; Z87.891 Personal history of nicotine dependence; Z79.899 Other long term (current) drug therapy; Y92.89 Other specified places as the place of occurrence of the external cause
CPT/HCPCS: 70450; 71045; 71275; 72100; 73521; 80048; 80053; 84484; 84703; 85025; 87637; 93005; 93306; 94640; 99285; G0378; J1644; J2405; J7030; J7050; J8540; 36415-L1; 36415-TC; J7613

== ENCOUNTER 2025-06-17 13:23 | Emergency (ER) | payer OTHER ==
[~2025-06-17] VITALS: Ht 170.2 cm; Wt 108.0 kg
[~2025-06-17 13:23] MED LIST changes: +AMOX-457 PO; -AMOX500T2 PO; -CEPH-558 PO; +CODE10LI2 PO; +DEXA2 PO
[2025-06-17 13:31] VITALS: BP 117/98; PULSE 105; RESP 20; TEMP 98.6; O2SAT 98
[2025-06-17 13:52] LABS: COVID AG,FIA SOURCE NASAL SWAB
[2025-06-17 14:14] LABS: RAPID GROUP A STREP NEGATIVE (NEGATIVE)
[2025-06-17 14:19] LABS: SARS-COV2 (COVID) ANTIGEN,FIA Negative (Negative)
[2025-06-17 14:20] LABS: INFLUENZA TYPE A NEGATIVE FOR TYPE A (NEGATIVE); INFLUENZA TYPE B NEGATIVE FOR TYPE B (NEGATIVE)
[2025-06-17] MEDS ORDERED: NIRM1TAB10 PO (16:26)
== END 2025-06-17 16:48 | disposition home or self-care (01) ==
LOC: EMS 13:23
DX: R05.9 Cough, unspecified (principal); R09.81 Nasal congestion; J45.909 Unspecified asthma, uncomplicated; F17.210 Nicotine dependence, cigarettes, uncomplicated; E05.90 Thyrotoxicosis, unspecified without thyrotoxic crisis or storm; Z86.16 Personal history of COVID-19; Z98.890 Other specified postprocedural states; Z79.899 Other long term (current) drug therapy; Z20.822 Contact with and (suspected) exposure to COVID-19
CPT/HCPCS: 87430; 87804; 99283

== ENCOUNTER 2025-07-11 16:55 | Emergency (ER) | payer OTHER ==
[~2025-07-11] VITALS: Ht 172.7 cm; Wt 110.9 kg
[~2025-07-11 16:55] MED LIST changes: +NIRM1TAB10 PO
[2025-07-11 17:06] VITALS: TEMP 98.2
[2025-07-11] MEDS ORDERED: HYDR30CR39 TP (18:30)
[2025-07-11] MEDS ORDERED: DIPH50CA39 PO (18:30)
[2025-07-11 18:43] VITALS: BP 98/67; PULSE 86; RESP 20; O2SAT 96
[2025-07-11] MEDS ORDERED: IBUP-1492 PO (18:49)
== END 2025-07-11 19:30 | disposition home or self-care (01) ==
LOC: EMS 16:55
DX: S70.361A Insect bite (nonvenomous), right thigh, initial encounter (principal); L29.9 Pruritus, unspecified; J45.909 Unspecified asthma, uncomplicated; F17.210 Nicotine dependence, cigarettes, uncomplicated; Z98.890 Other specified postprocedural states; Z79.899 Other long term (current) drug therapy; W57.XXXA Bitten or stung by nonvenomous insect and other nonvenomous arthropods, initial encounter; Y93.89 Activity, other specified; Y92.89 Other specified places as the place of occurrence of the external cause; Y99.8 Other external cause status
CPT/HCPCS: 99283